=== PATIENT | female | born 2000 | race Caucasian/White ===

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

== ENCOUNTER 2018-12-08 19:43 | Emergency (ER) | payer BC ==
[2018-12-08 19:49] VITALS: TEMP 98
[2018-12-08] MEDS ORDERED: SODIUM CHLORIDE 0.9% 500 ML 500 ML IV ONE (20:25)
[2018-12-08 20:47] LABS: Basophils % (A) 0 %; Eosinophils # (A) 0.1 k/uL (0-0.7); Eosinophils % (A) 1 %; HCT 33.1 % (34.0-46.0); HGB 12.1 gm/dL (11.4-16.0); Hyperchromasia Marked; Lymphocytes # (A) 0.9 k/uL (1.0-4.8); Lymphocytes % (A) 9 %; MCH 33.4 pg (25.0-35.0); MCHC 36.6 g/dL (31.0-37.0); MCV 91.4 fL (80.0-100.0); Mean Platelet Volume 6.6; Monocytes # (A) 0.4 k/uL (0-1.0); Monocytes % (A) 4 %; Neutrophils # (A) 8.8 k/uL (1.3-7.7); Neutrophils % (A) 85 %; Platelet Count 293 k/uL (150-450); RBC 3.62 m/uL (3.80-5.40); RDW 15.3 % (11.5-15.5); WBC 10.4 k/uL (4.0-11.0)
[2018-12-08 20:56] LABS: ALT 24 U/L (9-52); AST 26 U/L (14-36); African American GFR (CKD) >90 (>60 ml/min/1.73 sqM); Albumin 4.3 g/dL (3.5-5.0); Alkaline Phosphatase 47 U/L (38-126); Anion Gap 12 mmol/L; Blood Urea Nitrogen 11 mg/dL (7-17); Calcium 10.1 mg/dL (8.4-10.2); Carbon Dioxide 21 mmol/L (22-30); Chloride 103 mmol/L (98-107); Glucose 103 mg/dL (74-99); Potassium 4.1 mmol/L (3.5-5.1); Sodium 136 mmol/L (137-145); Total Bilirubin 2.9 mg/dL (0.2-1.3); Total Protein 7.2 g/dL (6.3-8.2)
[2018-12-08] MEDS ORDERED: ACETAMINOPHEN TAB 325 MG TAB PO STA (21:41)
--- NOTE | 2018-12-08 22:23 | ED ---
Abdominal Pain HPI - General Chief Complaint: Abdominal Pain Stated Complaint: Abd pain Time Seen by Provider: 12/08/18 20:25 Source: patient, family Mode of arrival: ambulatory Limitations: no limitations - History of Present Illness Initial Comments: 18-year-old female with no past medical history currently 16 weeks presents to emergency department accompanied by her mother. Patient states that for the past week and a half she has had increasing vomiting abdominal pain around her belly button. She states the pain increases in the right lower quadrant when she lets her leg. She was concerned of appendicitis. She did present earlier [facility] who diagnosed her with gastritis and discharge her from their facility. Patient states that she has had no vaginal bleeding. No lower pelvic pain. She states that she has had no blood in her stools or vomit. Denies fevers. Patient denies any dysuria urgency frequency or increase d vaginal discharge. Remaining review of system negative. Patient states she has not had an appetite. Patient states that she would like to r/o appendicitis and states she does not plan on keeping the and has a scheduled D&C outpatient. - Related Data Home Medications Medication Instructions Recorded Confirmed PARoxetine HCL [Paxil] 30 mg PO DAILY 09/04/17 12/08/18 Dextroamphetamine/Amphetamine 25 mg PO DIRECTED 12/08/18 12/08/18 [Adderall Xr] Omeprazole 40 mg PO DAILY 12/08/18 12/08/18 Ondansetron [Zofran ODT] 4 mg PO Q8HR 12/08/18 12/08/18 Allergies Allergy/AdvReac Type Severity Reaction Status Date / Time bupropion [From Wellbutrin] AdvReac CAUSES Verified 12/08/18 20:48 SEIZURES Review of Systems ROS Statement: Those systems with pertinent positive or pertinent negative responses have been documented in the HPI. ROS Other: All systems not noted in ROS Statement are negative. Past Medical History Past Medical History: GERD/Reflux Additional Past Medical History / Comment(s): pulmonary stenosis History of Any Multi-Drug Resistant Organisms: None Reported Past Surgical History: No Surgical Hx Reported Past Anesthesia/Blood Transfusion Reactions: No Reported Reaction Past Psychological History: ADD/ADHD, Anxiety, Depression Smoking Status: Current every day smoker Past Alcohol Use History: None Reported Past Drug Use History: None Reported - Past Family History Father Additional Family Medical History / Comment(s): add, smoker Mother Family Medical History: Hypertension, Thyroid Disorder Additional Family Medical History / Comment(s): cataracts, detatched retina, scleraderma, polymyocytis General Exam - General Exam Comments Initial Comments: General: The patient is awake and alert, in no distress Eye: +3 mm pupils are equal, round and reactive to light, extra-ocular movements are intact. No nystagmus. There is normal conjunctiva bilaterally. No signs of icterus. Ears, nose, mouth and throat: There are moist mucous membranes and no oral lesions. Neck: The neck is supple, there is no tenderness or JVD. Cardiovascular: There is a regular rate and rhythm. No murmur, rub or gallop is appreciated. Respiratory: Lungs are clear to auscultation, respirations are non-labored, breath sounds are equal. No wheezes, stridor, rales, or rhonchi. Gastrointestinal: Soft, non-distended, abdomen without masses or organomegaly noted. RLQ tenderness at McBurneys point. There is no rebound or guarding present. No CVA tenderness. Bowel sounds are unremarkable. Musculoskeletal: Normal ROM, no tenderness. Strength 5/5. Sensation intact. Radial and DP pulses equal bilaterally 2+. Neurological: A&O x 3. CN II-XII intact, There are no obvious motor or sensory deficits. Coordination appears grossly intact. Speech is normal. Skin: Skin is warm and dry and no rashes or lesions are noted. Psychiatric: Cooperative, appropriate mood & affect, normal judgment. Limitations: no limitations Course Vital Signs 12/08/18 12/09/18 19:45 00:37 Temperature 98.0 F Pulse Rate 95 69 Respiratory 20 18 Rate Blood Pressure 123/85 115/54 O2 Sat by Pulse 95 99 Oximetry - Reevaluation(s) Reevaluation #1: Refuses pelvic exam. Medical Decision Making - Medical Decision Making 18-year-old female presenting for right lower quadrant abdominal pain she admits to periumbilical pain. No appetite. Vomiting for the past week and half incr ease from her baseline during . Patient has a planned D&C. Patient has pain with raising of the right leg concern for appendicitis. Patient's patient will pain on examination. No leukocytosis or low-grade fever. However there is clinical concern for appendicitis. Patient is requesting CT. I discussed the risks of radiation to the fetus. She states she is aware and would like to continue as she is not keeping the and has scheduled D&C. Discussed case with attending and radiologist (stat rad). They are agreeable with study. Risks were discussed again at length prior to obtaining CT, patient would like to proceed. CT obtained revealing no acute process. US viable IUP no complicating process seen at this time. patient upon discharge was stating pain resolved. Refused pelvic on multiple occasions. Refused to give urine sample. Patient give IV hydration. Discharged appearing well, return parameters discussed. - Lab Data Result diagrams: 12/08/18 20:37 12/08/18 20:37 Lab Results 12/08/18 12/08/18 12/08/18 Range/Units 20:35 20:37 20:37 WBC 10.4 (4.0-11.0) k/uL RBC 3.62 L (3.80-5.40) m/uL Hgb 12.1 (11.4-16.0) gm/dL Hct 33.1 L (34.0-46.0) % MCV 91.4 (80.0-100.0) fL MCH 33.4 (25.0-35.0) pg MCHC 36.6 (31.0-37.0) g/dL RDW 15.3 (11.5-15.5) % Plt Count 293 (150-450) k/uL Neutrophils % 85 % Lymphocytes % 9 % Monocytes % 4 % Eosinophils % 1 % Basophils % 0 % Neutrophils # 8.8 H (1.3-7.7) k/uL Lymphocytes # 0.9 L (1.0-4.8) k/uL Monocytes # 0.4 (0-1.0) k/uL Eosinophils # 0.1 (0-0.7) k/uL Basophils # 0.0 (0-0.2) k/uL Hyperchromasia Marked Sodium 136 L (137-145) mmol/L Potassium 4.1 (3.5-5.1) mmol/L Chloride 103 (98-107) mmol/L Carbon Dioxide 21 L (22-30) mmol/L Anion Gap 12 mmol/L BUN 11 (7-17) mg/dL Creatinine 0.44 L (0.52-1.04) mg/dL Est GFR (CKD-EPI)AfAm >90 (>60 ml/min/1.73 sqM) Est GFR (CKD-EPI)NonAf >90 (>60 ml/min/1.73 sqM) Glucose 103 H (74-99) mg/dL Calcium 10.1 (8.4-10.2) mg/dL Total Bilirubin 2.9 H (0.2-1.3) mg/dL AST 26 (14-36) U/L ALT 24 (9-52) U/L Alkaline Phosphatase 47 (38-126) U/L Total Protein 7.2 (6.3-8.2) g/dL Albumin 4.3 (3.5-5.0) g/dL HCG, Quant mIU/mL Blood Type O Positive Blood Type Recheck No Antibody Screen NEGATIVE Spec Expiration Date 12/11/2018 - 233612/08/18 Range/Units 20:38 WBC (4.0-11.0) k/uL RBC (3.80-5.40) m/uL Hgb (11.4-16.0) gm/dL Hct (34.0-46.0) % MCV (80.0-100.0) fL MCH (25.0-35.0) pg MCHC (31.0-37.0) g/dL RDW (11.5-15.5) % Plt Count (150-450) k/uL Neutrophils % % Lymphocytes % % Monocytes % % Eosinophils % % Basophils % % Neutrophils # (1.3-7.7) k/uL Lymphocytes # (1.0-4.8) k/uL Monocytes # (0-1.0) k/uL Eosinophils # (0-0.7) k/uL Basophils # (0-0.2) k/uL Hyperchromasia Sodium (137-145) mmol/L Potassium (3.5-5.1) mmol/L Chloride (98-107) mmol/L Carbon Dioxide (22-30) mmol/L Anion Gap mmol/L BUN (7-17) mg/dL Creatinine (0.52-1.04) mg/dL Est GFR (CKD-EPI)AfAm (>60 ml/min/1.73 sqM) Est GFR (CKD-EPI)NonAf (>60 ml/min/1.73 sqM) Glucose (74-99) mg/dL Calcium (8.4-10.2) mg/dL Total Bilirubin (0.2-1.3) mg/dL AST (14-36) U/L ALT (9-52) U/L Alkaline Phosphatase (38-126) U/L Total Protein (6.3-8.2) g/dL Albumin (3.5-5.0) g/dL HCG, Quant 26587.3 mIU/mL Blood Type Blood Type Recheck Antibody Screen Spec Expiration Date Disposition Clinical Impression: Abdominal pain, Right lower quadrant pain, Elevated alkaline phosphatase level Disposition: HOME SELF-CARE Condition: Good Instructions (If sedation given, give patient instructions): Abdominal Pain (ED) Additional Instructions: Please use medication as discussed. Please follow-up with family doctor in the next 2 days, and OBGYN as scheduled. Please return to emergency room if the symptoms increase or worsen or for any other concerns. Is patient prescribed a controlled substance at d/c from ED?: No Referrals: Alan Jacobs MD [Primary Care Provider] - 1-2 days Time of Disposition: 00:57
[2018-12-08] MEDS ORDERED: IBUPROFEN 600 MG TAB PO STA (23:00)
--- NOTE | 2018-12-08 23:26 | US ---
EXAM: US After First Trimester, Transabdominal CLINICAL HISTORY: Pain TECHNIQUE: Real-time transabdominal obstetrical ultrasound of the maternal pelvis and a second or third trimester with image documentation. COMPARISON: No relevant prior studies available. FINDINGS: Fetus: Single live IUP with an estimated gestational age of 14 weeks and 4 days. Heart rate: Normal heart tones measured 152 bpm. Presentation: Cephalic presentation. Placenta: Anterior placenta without evidence of previa. Amniotic fluid: Unremarkable. Anatomy: Intracranial/face anatomy not seen. Spinal anatomy not seen. Abdominal anatomy not seen. Extremities not seen. Four-chamber heart not seen. Umbilical cord not seen. BIOMETRICS Gestational age: 14 weeks and 4 days MARITA: 06/04/2021 EFW: 90.5 g BPD: 2.47 cm suggesting 14 week and 2 day gestation HC: 9.85 cm suggesting 14 week and 4 day gestation AC: 7.85 cm suggesting 14 week and 2 day gestation FL: 1.32 cm suggesting 13 week and 6 day gestation MATERNAL: Uterus: Unremarkable. No myometrial mass. Cervix: Long and closed measured 3.0 cm. Free fluid: No free fluid. IMPRESSION: Single live IUP with an estimated gestational age of 14 weeks and 4 days.
[2018-12-09 00:38] VITALS: BP 115/54; PULSE 69; RESP 18
--- NOTE | 2018-12-09 00:54 | CT ---
EXAM: CT Abdomen and Pelvis With Intravenous Contrast CLINICAL HISTORY: Pain TECHNIQUE: Axial computed tomography images of the abdomen and pelvis with intravenous contrast. CTDI is 0.085, 0.085, 6.3, 5.8 mGy and DLP is 540. 7 mGy-cm. This CT exam was performed using one or more of the following dose reduction techniques: automated exposure control, adjustment of the mA and/or kV according to patient size, and/or use of iterative reconstruction technique. COMPARISON: No relevant prior studies available. FINDINGS: Lung bases: Unremarkable. No mass. No consolidation. ABDOMEN: Liver: Unremarkable. Gallbladder and bile ducts: Unremarkable. Pancreas: Unremarkable. Spleen: Unremarkable. Adrenals: Unremarkable. Kidneys and ureters: Unremarkable. Stomach and bowel: Unremarkable. PELVIS: Appendix: Appendix is unremarkable. Bladder: Unremarkable. Reproductive: Unremarkable as visualized. ABDOMEN and PELVIS: Intraperitoneal space: Trace free fluid the pelvis. Bones/joints: No acute fracture. No dislocation. Soft tissues: Unremarkable. Vasculature: Unremarkable. No abdominal aortic aneurysm. Lymph nodes: Unremarkable. Other findings: Single IUP is noted. IMPRESSION: 1. Appendix is unremarkable. 2. Single IUP is noted.
== END 2018-12-09 01:07 | disposition home or self-care (01) ==
LOC: EC 19:43
DX: O99.89 Other specified diseases and conditions complicating pregnancy, childbirth and the puerperium (principal); R74.8 Abnormal levels of other serum enzymes; R10.31 Right lower quadrant pain; R10.33 Periumbilical pain; O21.9 Vomiting of pregnancy, unspecified; O99.612 Diseases of the digestive system complicating pregnancy, second trimester; K21.9 Gastro-esophageal reflux disease without esophagitis; O99.342 Other mental disorders complicating pregnancy, second trimester; F32.9 Major depressive disorder, single episode, unspecified; F41.9 Anxiety disorder, unspecified; F90.9 Attention-deficit hyperactivity disorder, unspecified type; O99.332 Smoking (tobacco) complicating pregnancy, second trimester; F17.200 Nicotine dependence, unspecified, uncomplicated; Z88.8 Allergy status to other drugs, medicaments and biological substances; Z79.899 Other long term (current) drug therapy; Z3A.14 14 weeks gestation of pregnancy; Z53.20 Procedure and treatment not carried out because of patient's decision for unspecified reasons
CPT/HCPCS: 36415; 86900; 86901; 80053; 85025; 86850; 84702; 93975; 76805; 74177; 99284; 96360; Q9967

== ENCOUNTER 2021-02-16 11:55 | Observation (INO) | payer BC ==
[2021-02-16] MEDS ORDERED: ONDANSETRON 4 MG/2 ML VIAL IVP STA ×2 (13:14→15:18)
[2021-02-16] MEDS ORDERED: MORPHINE SULFATE 4 MG/ML SYRINGE IV STA ×2 (13:14→15:18)
--- NOTE | 2021-02-16 13:17 | ED ---
General Adult HPI - General Chief complaint: Abdominal Pain Stated complaint: abd pain Time Seen by Provider: 02/16/21 12:48 Source: patient, family Mode of arrival: wheelchair Limitations: no limitations - History of Present Illness Initial comments: Dictation was produced using [employer] dictation software. please excuse any grammatical, word or spelling errors. Chief Complaint: 20-year-old female presents emergency department for abdominal pain History of Present Illness: 20-year-old female she states she was diagnosed with a history of GERD as a pediatric patient. Over the last several weeks she's been having worsening abdominal pain. She presents today with cousin and other family friend. Over the last month patient has been having worsening GI symptoms including poor appetite, nausea vomiting and bloody diarrhea. Patient is told that she was anemic. She was seen at [facility] recently and told that she may have a stomach ulcer. Patient states that she has pain all over but worse in the left lower quadrant. She denies . Denies ever having had a colonoscopy but has had a upper endoscopy performed at the age of 13 showing reflux disease. Denies any fever. No chills. No constitutional symptoms. Denies any vaginal discharge or vaginal bleeding. The ROS documented in this emergency department record has been reviewed and confirmed by me. Those systems with pertinent positive or negative responses have been documented in the HPI. All other systems are other negative and/or noncontributory. PHYSICAL EXAM: General Impression: Alert and oriented x3, lethargic HEENT: Normocephalic atraumatic, extra-ocular movements intact, pupils equal and reactive to light bilaterally, dry mucous membranes Cardiovascular: Heart regular rate and rhythm Chest: Able to complete full sentences, no retractions, no tachypnea Abdomen: abdomen soft, diffuse tenderness worse in the left lower quadrant, non- distended, no organomegaly Musculoskeletal: Pulses present and equal in all extremities, no peripheral edema Motor: no focal deficits noted Neurological: CN II-XII grossly intact, no focal motor or sensory deficits noted Skin: Intact with no visualized rashes Psych: Normal affect and mood ED course: 20-year-old ill-appearing female presents to the emergency department for abdominal pain. Vital signs upon arrival are within acceptable limits. Laboratory evaluation obtained mild leukocytosis secondary secondary to stress. Hemoglobin stable. Metabolic panel is within acceptable limits. Slight elevation of lipase 06/09/2004. Beta Quant is negative. Urinalysis is negative. Patient given analgesia, fluids and antiemetics. She was reevaluated at bedside continues to be symptomatic. There is some degree of dehydration. Patient is a regular marijuana user. Clinical presentation is likely secondary to hyperemesis cannabinoid syndrome. Patient does not feel well enough to go home and has been having increase in severity of symptoms over the last 72 hours. Patient be admitted to observation. Patient be admitted to [facility]. - Related Data Home Medications Medication Instructions Recorded Confirmed PARoxetine HCL [Paxil] 30 mg PO DAILY 09/04/17 02/16/21 Ondansetron [Zofran ODT] 4 mg PO Q8HR 12/08/18 02/16/21 Cholecalciferol (Vitamin D3) 125 mcg PO DAILY 02/16/21 02/16/21 [Vitamin D3 (125 MCG = 5,000 IU)] Dicyclomine [Bentyl] 10 mg PO QID 02/16/21 02/16/21 Famotidine [Pepcid] 20 mg PO BID 02/16/21 02/16/21 Methylphenidate HCl [Concerta] 27 mg PO DAILY 02/16/21 02/16/21 OLANZapine [ZyPREXA] 2.5 mg PO HS 02/16/21 02/16/21 Omeprazole 20 mg PO BID 02/16/21 02/16/21 clonazePAM [KlonoPIN] 0.5 mg PO Q8H 02/16/21 02/16/21 Allergies Allergy/AdvReac Type Severity Reaction Status Date / Time bupropion [From Wellbutrin] AdvReac CAUSES Verified 02/16/21 13:58 SEIZURES Review of Systems ROS Statement: Those systems with pertinent positive or pertinent negative responses have been documented in the HPI. ROS Other: All systems not noted in ROS Statement are negative. Past Medical History Past Medical History: GERD/Reflux Additional Past Medical History / Comment(s): pulmonary stenosis History of Any Multi-Drug Resistant Organisms: None Reported Past Surgical History: No Surgical Hx Reported Past Anesthesia/Blood Transfusion Reactions: No Reported Reaction Past Psychological History: ADD/ADHD, Anxiety, Depression Past Alcohol Use History: None Reported Past Drug Use History: None Reported - Past Family History Father Additional Family Medical History / Comment(s): add, smoker Mother Family Medical History: Hypertension, Thyroid Disorder Additional Family Medical History / Comment(s): cataracts, detatched retina, scleraderma, polymyocytis General Exam Limitations: no limitations Course Vital Signs 02/16/21 12:37 Temperature 97.7 F Pulse Rate 80 Respiratory 18 Rate Blood Pressure 118/79 O2 Sat by Pulse 99 Oximetry Medical Decision Making - Lab Data Result diagrams: 02/16/21 13:20 02/16/21 13:20 Lab Results 02/16/21 02/16/21 02/16/21 Range/Units 13:20 13:20 13:20 WBC 12.0 H (3.8-10.6) k/uL RBC 3.64 L (3.80-5.40) m/uL Hgb 12.6 (11.4-16.0) gm/dL Hct 33.0 L (34.0-46.0) % MCV 90.6 (80.0-100.0) fL MCH 34.6 (25.0-35.0) pg MCHC 38.2 H (31.0-37.0) g/dL RDW 13.5 (11.5-15.5) % Plt Count 272 (150-450) k/uL MPV 7.6 Neutrophils % 89 % Lymphocytes % 7 % Monocytes % 3 % Eosinophils % 0 % Basophils % 0 % Neutrophils # 10.6 H (1.3-7.7) k/uL Lymphocytes # 0.9 L (1.0-4.8) k/uL Monocytes # 0.4 (0-1.0) k/uL Eosinophils # 0.0 (0-0.7) k/uL Basophils # 0.0 (0-0.2) k/uL Differential Comment Manual Slide Review Performed Hyperchromasia Marked Poikilocytosis Slight Sodium 137 (137-145) mmol/L Potassium 3.6 (3.5-5.1) mmol/L Chloride 103 (98-107) mmol/L Carbon Dioxide 22 (22-30) mmol/L Anion Gap 12 mmol/L BUN 10 (7-17) mg/dL Creatinine 0.62 (0.52-1.04) mg/dL Est GFR (CKD-EPI)AfAm >90 (>60 ml/min/1.73 sqM) Est GFR (CKD-EPI)NonAf >90 (>60 ml/min/1.73 sqM) Glucose 130 H (74-99) mg/dL Calcium 10.5 H (8.4-10.2) mg/dL Total Bilirubin 2.1 H (0.2-1.3) mg/dL AST 23 (14-36) U/L ALT 13 (4-34) U/L Alkaline Phosphatase 64 (38-126) U/L Total Protein 7.3 (6.3-8.2) g/dL Albumin 4.6 (3.5-5.0) g/dL Lipase 405 H (23-300) U/L HCG, Quant <2.4 mIU/mL Urine Color Urine Appearance (Clear) Urine pH (5.0-8.0) Ur Specific [place] (1.001-1.035) Urine Protein (Negative) Urine Glucose (UA) (Negative) Urine Ketones (Negative) Urine Blood (Negative) Urine Nitrite (Negative) Urine Bilirubin (Negative) Urine Urobilinogen (<2.0) mg/dL Ur Leukocyte Esterase (Negative) Blood Type O Positive Blood Type Recheck O Pos Bld Type Recheck Status No Antibody Screen NEGATIVE Spec Expiration Date 02/19/2021 - 231902/16/21 Range/Units 14:49 WBC (3.8-10.6) k/uL RBC (3.80-5.40) m/uL Hgb (11.4-16.0) gm/dL Hct (34.0-46.0) % MCV (80.0-100.0) fL MCH (25.0-35.0) pg MCHC (31.0-37.0) g/dL RDW (11.5-15.5) % Plt Count (150-450) k/uL MPV Neutrophils % % Lymphocytes % % Monocytes % % Eosinophils % % Basophils % % Neutrophils # (1.3-7.7) k/uL Lymphocytes # (1.0-4.8) k/uL Monocytes # (0-1.0) k/uL Eosinophils # (0-0.7) k/uL Basophils # (0-0.2) k/uL Differential Comment Manual Slide Review Hyperchromasia Poikilocytosis Sodium (137-145) mmol/L Potassium (3.5-5.1) mmol/L Chloride (98-107) mmol/L Carbon Dioxide (22-30) mmol/L Anion Gap mmol/L BUN (7-17) mg/dL Creatinine (0.52-1.04) mg/dL Est GFR (CKD-EPI)AfAm (>60 ml/min/1.73 sqM) Est GFR (CKD-EPI)NonAf (>60 ml/min/1.73 sqM) Glucose (74-99) mg/dL Calcium (8.4-10.2) mg/dL Total Bilirubin (0.2-1.3) mg/dL AST (14-36) U/L ALT (4-34) U/L Alkaline Phosphatase (38-126) U/L Total Protein (6.3-8.2) g/dL Albumin (3.5-5.0) g/dL Lipase (23-300) U/L HCG, Quant mIU/mL Urine Color Light Yellow Urine Appearance Clear (Clear) Urine pH 8.0 (5.0-8.0) Ur Specific [place] 1.016 (1.001-1.035) Urine Protein Negative (Negative) Urine Glucose (UA) Negative (Negative) Urine Ketones 2+ H (Negative) Urine Blood Negative (Negative) Urine Nitrite Negative (Negative) Urine Bilirubin Negative (Negative) Urine Urobilinogen <2.0 (<2.0) mg/dL Ur Leukocyte Esterase Negative (Negative) Blood Type Blood Type Recheck Bld Type Recheck Status Antibody Screen Spec Expiration Date Disposition Clinical Impression: Intractable nausea and vomiting Disposition: ADMITTED IP TO THIS [facility] Condition: Fair Referrals: Alan Jacobs MD [Primary Care Provider] - 1-2 days
[2021-02-16] MEDS ORDERED: SODIUM CHLORIDE 0.9% 1,000 ML IV ONE (13:24)
[2021-02-16 13:33] LABS: Basophils % (A) 0 %; Eosinophils % (A) 0 %; HGB 12.6 gm/dL (11.4-16.0); Hyperchromasia Marked; Lymphocytes # (A) 0.9 k/uL (1.0-4.8); Lymphocytes % (A) 7 %; MCH 34.6 pg (25.0-35.0); MCV 90.6 fL (80.0-100.0); Mean Platelet Volume 7.6; Monocytes # (A) 0.4 k/uL (0-1.0); Monocytes % (A) 3 %; Neutrophils # (A) 10.6 k/uL (1.3-7.7); Neutrophils % (A) 89 %; Platelet Count 272 k/uL (150-450); Poikilocytosis Slight; RBC 3.64 m/uL (3.80-5.40); RDW 13.5 % (11.5-15.5)
[2021-02-16 13:50] LABS: ALT 13 U/L (4-34); AST 23 U/L (14-36); African American GFR (CKD) >90 (>60 ml/min/1.73 sqM); Albumin 4.6 g/dL (3.5-5.0); Alkaline Phosphatase 64 U/L (38-126); Anion Gap 12 mmol/L; Blood Urea Nitrogen 10 mg/dL (7-17); Calcium 10.5 mg/dL (8.4-10.2); Carbon Dioxide 22 mmol/L (22-30); Chloride 103 mmol/L (98-107); Glucose 130 mg/dL (74-99); Lipase 405 U/L (23-300); Non-African American GFR(CKD) >90 (>60 ml/min/1.73 sqM); Potassium 3.6 mmol/L (3.5-5.1); Sodium 137 mmol/L (137-145); Total Bilirubin 2.1 mg/dL (0.2-1.3); Total Protein 7.3 g/dL (6.3-8.2)
[2021-02-16 13:51] LABS: MCHC 38.2 g/dL (31.0-37.0)
[2021-02-16 14:05] LABS: HCG,Quantitative Serum <2.4 mIU/mL
[2021-02-16 14:56] LABS: Appearance,Urine Clear (Clear); Bilirubin,Urine Negative (Negative); Blood,Urine Negative (Negative); Color,Urine Light Yellow; Glucose,Urine (UA) Negative (Negative); Ketones,Urine 2+ (Negative); Leukocyte Esterase,Urine Negative (Negative); Nitrite,Urine Negative (Negative); Protein,Urine Negative (Negative); Specific Gravity,Urine 1.016 (1.001-1.035); Urobilinogen,Urine <2.0 mg/dL (<2.0)
--- NOTE | 2021-02-16 15:05 | CT ---
EXAMINATION TYPE: CT abdomen pelvis w con DATE OF EXAM: 02/16/2021 COMPARISON: 12/09/2018 INDICATION: Generalized pain for 2 months DLP: 899.3 mGycm, Automated exposure control for dose reduction was used. CONTRAST: 100 mL of Isovue 300. Study performed without Oral Contrast TECHNIQUE: Axial images were obtained from above the diaphragm to the pubic rami in the axial plane a t 5 mm thick sections. Reconstructed images are reviewed on the computer in the coronal plane. FINDINGS: Limited CT sections are obtained the lung bases. The lung bases are clear. CT ABDOMEN: Liver: Normal Spleen: Normal Pancreas: Normal Adrenal glands: The adrenal glands are normal. Gallbladder: Normal Kidneys: No masses are evident. No hydronephrosis is present. No cysts are present. Delayed images were obtained through the kidneys, which remain unremarkable. Aorta: Vascular calcification is within the aorta. Inferior vena cava: Normal. CT PELVIS: Loops of bowel within the abdomen and pelvis are normal. There are loops of bowel which are incom pletely distended or lack oral contrast limiting their evaluation. Appendix: Normal as visualized. Urinary bladder: Normal. Genitourinary structures: There is a 2 cm cyst on the right ovary. The uterus appears unremarkable. L eft adnexal region is unremarkable. A 0.7 cm follicle may be present on the left ovary. No free fluid is within the pelvis. Osseous structures: No suspicious lytic or sclerotic lesions. IMPRESSIONS: 1. 2 cm cyst right ovary. 2. CT abdomen and pelvis otherwise essentially unremarkable
[2021-02-16] MEDS ORDERED: CAPSAICIN 0.025% CREAM 60 GM TUBE TOPICAL STA (15:20)
[2021-02-16] MEDS ORDERED: NALOXONE 0.4 MG/ML 1 ML VIAL IV PRN (15:21)
[2021-02-16] MEDS ORDERED: ACETAMINOPHEN TAB 325 MG TAB PO PRN (15:21)
[2021-02-16] MEDS ORDERED: ONDANSETRON 4 MG/2 ML VIAL IVP PRN (15:21)
[2021-02-16] MEDS ORDERED: MORPHINE SULFATE 4 MG/ML SYRINGE IV PRN (15:21)
[2021-02-16] MEDS: SODIUM CHLORIDE 0.9% 1,000 ML IV SCH ×2 (15:50→23:37)
--- NOTE | 2021-02-16 18:16 | P.HPIM ---
History of Present Illness H&P Date: 02/16/21 Chief Complaint: Abdominal pain, vomiting, hematochezia 20-year-old woman with medical history of ADHD, mood disturbance, GERD, marijuana abuse presented with abdominal pain, nausea, vomiting. Patient says that she's had this issue for approximately one month, but has been particularly worse in the past week. She has been to 2 emergency rooms and was sent home from the emergency room twice. She comes in today complaining of ongoing abdominal pain, nausea, vomiting. She also reports that she has having some hematochezia in her stools. She denies fevers, chills, chest pain, palpitations, dysuria, numbness/weakness. She does report a history of marijuana use. Of note, patient herself provided limited history and only minimally participated in review of systems due to sedation from pain medication. Patient is afebrile, hemodynamically stable, 98% on room air. Review of Systems All Systems reviewed and pertinent positives and negatives noted in HPI, all other symptoms are negative Past Medical History Past Medical History: GERD/Reflux Additional Past Medical History / Comment(s): pulmonary stenosis History of Any Multi-Drug Resistant Organisms: None Reported Past Surgical History: No Surgical Hx Reported Past Anesthesia/Blood Transfusion Reactions: No Reported Reaction Past Psychological History: ADD/ADHD, Anxiety, Depression Past Alcohol Use History: None Reported Past Drug Use History: None Reported - Past Family History Father Additional Family Medical History / Comment(s): add, smoker Mother Family Medical History: Hypertension, Thyroid Disorder Additional Family Medical History / Comment(s): cataracts, detatched retina, scleraderma, polymyocytis Medications and Allergies Home Medications Medication Instructions Recorded Confirmed Type PARoxetine HCL [Paxil] 30 mg PO DAILY 09/04/17 02/16/21 History Ondansetron [Zofran ODT] 4 mg PO Q8HR 12/08/18 02/16/21 History Cholecalciferol (Vitamin D3) 125 mcg PO DAILY 02/16/21 02/16/21 History [Vitamin D3 (125 MCG = 5,000 IU)] Dicyclomine [Bentyl] 10 mg PO QID 02/16/21 02/16/21 History Famotidine [Pepcid] 20 mg PO BID 02/16/21 02/16/21 History Methylphenidate HCl [Concerta] 27 mg PO DAILY 02/16/21 02/16/21 History OLANZapine [ZyPREXA] 2.5 mg PO HS 02/16/21 02/16/21 History Omeprazole 20 mg PO BID 02/16/21 02/16/21 History clonazePAM [KlonoPIN] 0.5 mg PO Q8H 02/16/21 02/16/21 History Allergies Allergy/AdvReac Type Severity Reaction Status Date / Time bupropion [From Wellbutrin] AdvReac CAUSES Verified 02/16/21 13:58 SEIZURES Physical Exam Osteopathic Statement: *. No significant issues noted on an osteopathic structural exam other than those noted in the History and Physical/Consult. Vitals: Vital Signs Temp Pulse Resp BP Pulse Ox 02/16/21 17:30 77 16 126/78 98 02/16/21 15:53 67 16 132/93 98 02/16/21 12:37 97.7 F 80 18 118/79 99 Intake and Output 02/16/21 02/16/21 02/16/21 06:59 14:59 22:59 Other: Weight 78.018 kg Gen: Groggy, arousable to voice HEENT: normocephalic, atraumatic, good hearing acuity, moist mucous membranes Resp: good air exchange, breathing comfortably with no accessory muscle use, clear to auscultation bilaterally CVS: good distal perfusion x 4, regular rate and rhythm without murmurs GI: soft, NTTP, ND, hyperactive bowel sounds : no SPT, no CVAT, bonner catheter not present MSK: no pitting edema, no clubbing Neuro: non-focal, moving all extremities Results CBC & Chem 7: 02/16/21 13:20 02/16/21 13:20 Labs: Abnormal Lab Results - Last 24 Hours (Table) 02/16/21 02/16/21 02/16/21 Range/Units 13:20 13:20 14:49 WBC 12.0 H (3.8-10.6) k/uL RBC 3.64 L (3.80-5.40) m/uL Hct 33.0 L (34.0-46.0) % MCHC 38.2 H (31.0-37.0) g/dL Neutrophils # 10.6 H (1.3-7.7) k/uL Lymphocytes # 0.9 L (1.0-4.8) k/uL Glucose 130 H (74-99) mg/dL Calcium 10.5 H (8.4-10.2) mg/dL Total Bilirubin 2.1 H (0.2-1.3) mg/dL Lipase 405 H (23-300) U/L Urine Ketones 2+ H (Negative) Assessment and Plan Assessment: Abdominal pain Nausea and vomiting Hematochezia -Admit to observation -GI consult -Stool occult blood -IV fluids -Nausea control -Pain control Tylenol -ESR, CRP -Marijuana cessation counseling Mood disorder Anxiety GERD -Resume home meds Patient is a full code
[2021-02-16] MEDS: clonazePAM 0.5 MG TAB PO SCH ×2 (18:54→23:36)
[2021-02-16] MEDS: DICYCLOMINE 10 MG CAP PO SCH ×2 (18:54→22:19)
[2021-02-16] MEDS: PANTOPRAZOLE 40 MG TABLET PO SCH (18:55)
[2021-02-16] MEDS: MORPHINE SULFATE 4 MG/ML SYRINGE IVP PRN ×2 (20:28→23:36)
[2021-02-16] MEDS ORDERED: FAMOTIDINE 20 MG TAB PO SCH (21:00)
[2021-02-16] MEDS ORDERED: OLANZapine 2.5 MG TAB PO SCH (21:00)
[2021-02-16] MEDS: ONDANSETRON ODT 4 MG TAB PO SCH (22:19)
[2021-02-17 06:03] LABS: Basophils # (A) 0.1 k/uL (0-0.2); Basophils % (A) 1 %; Eosinophils % (A) 0 %; HCT 29.3 % (34.0-46.0); HGB 10.7 gm/dL (11.4-16.0); Hyperchromasia Marked; Lymphocytes % (A) 22 %; MCH 34.2 pg (25.0-35.0); MCHC 36.5 g/dL (31.0-37.0); MCV 93.7 fL (80.0-100.0); Mean Platelet Volume 7.7; Monocytes # (A) 0.5 k/uL (0-1.0); Monocytes % (A) 5 %; Neutrophils # (A) 6.4 k/uL (1.3-7.7); Neutrophils % (A) 70 %; Platelet Count 242 k/uL (150-450); Poikilocytosis Slight; RBC 3.13 m/uL (3.80-5.40); WBC 9.2 k/uL (3.8-10.6)
[2021-02-17] MEDS: PANTOPRAZOLE 40 MG TABLET PO SCH (06:05)
[2021-02-17] MEDS: ONDANSETRON ODT 4 MG TAB PO SCH ×2 (06:05→13:07)
[2021-02-17 08:21] LABS: African American GFR (CKD) >90 (>60 ml/min/1.73 sqM); Anion Gap 6 mmol/L; Blood Urea Nitrogen 7 mg/dL (7-17); Calcium 8.8 mg/dL (8.4-10.2); Carbon Dioxide 25 mmol/L (22-30); Chloride 108 mmol/L (98-107); Glucose 87 mg/dL (74-99); Magnesium 1.9 mg/dL (1.6-2.3); Non-African American GFR(CKD) >90 (>60 ml/min/1.73 sqM); Potassium 3.7 mmol/L (3.5-5.1); Sodium 139 mmol/L (137-145)
[2021-02-17 08:47] LABS: C Reactive Protein 1.2 mg/dL (<1.0)
[2021-02-17] MEDS: clonazePAM 0.5 MG TAB PO SCH (08:52)
[2021-02-17] MEDS: DICYCLOMINE 10 MG CAP PO SCH ×2 (08:53→13:11)
[2021-02-17 08:54] VITALS: TEMP 98.2
[2021-02-17] MEDS ORDERED: PARoxetine 10 MG TAB PO SCH (09:00)
[2021-02-17] MEDS ORDERED: CHOLECALCIFEROL 25 MCG (1000 IU) TABLET PO SCH (09:00)
[2021-02-17] MEDS ORDERED: PROCHLORPERAZINE INJ 10 MG/2 ML VIAL IVP PRN (10:13)
[2021-02-17 10:14] LABS: Albumin 3.5 g/dL (3.5-5.0); Bilirubin, Delta 0.3 mg/dL (0.0-0.2); Bilirubin,Unconjugated 0.9 mg/dL (0.0-1.1); Total Bilirubin 1.2 mg/dL (0.2-1.3)
[2021-02-17] MEDS: SODIUM CHLORIDE 0.9% 1,000 ML IV SCH (10:38)
[2021-02-17] MEDS ORDERED: METOCLOPRAMIDE 5 MG/ML 2 ML VIAL IVP SCH (12:00)
[2021-02-17 12:34] VITALS: BP 125/77; PULSE 72; RESP 16
--- NOTE | 2021-02-17 14:34 | P.CONS ---
History of Present Illness - Reason for Consult Consult date: 02/17/21 intractable nausea and vomiting Requesting physician: Radha Kelley - Chief Complaint abdominal pain - History of Present Illness This a 20-year-old female who presented to the emergency department yesterday with complaints of abdominal pain increasing in severity. Patient states she's had abdominal pain for the last 2 months duration with nausea and vomiting. Patient states pain does get worse after eating. States she may vomit up to 10 times a day, no evidence of coffee-ground emesis or hematemesis. She does state she has a history of GERD and was diagnosed with gastritis. She states she had an EGD approximately 10 years ago for recurrent abdominal pain and acid reflux. She does take omeprazole twice a day as well as Pepcid daily. Patient states she usually has a bowel movement daily. She does smoke marijuana daily and also tapes. Patient states she was told prior that, likely cyclic vomiting related to smoking marijuana. However she still continues to smoke daily. On admission WBC was 12, total bilirubin 2.1 AST 23 ALT 13 alkaline phosphatase 64 lipase 405. Repeat today 9.2 hemoglobin 10.7 hematocrit 29 platelet count 242 total bilirubin 1.2 conjugated bilirubin 0 unconjugated bilirubin 0.9 AST 19 ALT 10 alkaline phosphatase 44. The patient underwent a CT of the abdomen and pelvis that showed a 2 cm right ovarian cyst otherwise CT abdomen and pelvis essentially unremarkable. Review of Systems REVIEW OF SYSTEMS: CARDIOPULMONARY: No chest pain or shortness of breath. Gastrointestinal: Diffuse abdominal pain mostly periumbilical Nausea and vomiting. No hematemesis, coffee-ground emesis. No rectal bleeding, or melena. GENITOURINARY: No dysuria or hematuria. MUSCULOSKELETAL: Reports normal range of motion., Joint pain. SKIN: No rashes. No jaundice. ENDOCRINE: No chills, fevers. No excessive weight gain or loss. No polydipsia or polyuria. PSYCHIATRIC: Unremarkable. NEUROLOGY: No change in mental status. Denies dizziness, headache. ENT: Vision unremarkable. CONSTITUTIONAL: No recent weight loss. No fever, chills, night sweats. Past Medical History Past Medical History: GERD/Reflux Additional Past Medical History / Comment(s): pulmonary stenosis History of Any Multi-Drug Resistant Organisms: None Reported Past Surgical History: No Surgical Hx Reported Past Anesthesia/Blood Transfusion Reactions: No Reported Reaction Past Psychological History: ADD/ADHD, Anxiety, Depression Past Alcohol Use History: None Reported Past Drug Use History: None Reported - Past Family History Father Additional Family Medical History / Comment(s): add, smoker Mother Family Medical History: Hypertension, Thyroid Disorder Additional Family Medical History / Comment(s): cataracts, detatched retina, scleraderma, polymyocytis Medications and Allergies Home Medications Medication Instructions Recorded Confirmed Type PARoxetine HCL [Paxil] 30 mg PO DAILY 09/04/17 02/16/21 History Ondansetron [Zofran ODT] 4 mg PO Q8HR 12/08/18 02/16/21 History Cholecalciferol (Vitamin D3) 125 mcg PO DAILY 02/16/21 02/16/21 History [Vitamin D3 (125 MCG = 5,000 IU)] Dicyclomine [Bentyl] 10 mg PO QID 02/16/21 02/16/21 History Famotidine [Pepcid] 20 mg PO BID 02/16/21 02/16/21 History OLANZapine [ZyPREXA] 2.5 mg PO HS 02/16/21 02/16/21 History Omeprazole 20 mg PO BID 02/16/21 02/16/21 History clonazePAM [KlonoPIN] 0.5 mg PO Q8H 02/16/21 02/16/21 History Acetaminophen Tab [Tylenol] 650 mg PO Q6HR PRN tab 02/17/21 Rx Metoclopramide HCl [Reglan] 5 mg PO Q6H PRN #30 tablet 02/17/21 Rx Prochlorperazine [Compazine] 10 mg PO Q6H PRN #30 tab 02/17/21 Rx Allergies Allergy/AdvReac Type Severity Reaction Status Date / Time bupropion [From Wellbutrin] AdvReac CAUSES Verified 02/16/21 18:09 SEIZURES Physical Exam Vitals: Vital Signs Temp Pulse Pulse Resp BP BP Pulse Ox 02/17/21 03:09 98 F 67 16 100/62 95 02/16/21 20:25 98 F 86 18 130/78 98 02/16/21 18:41 98.3 F 77 16 111/74 95 02/16/21 17:30 77 16 126/78 98 02/16/21 15:53 67 16 132/93 98 02/16/21 12:37 97.7 F 80 18 118/79 99 Intake and Output 02/16/21 02/17/21 02/17/21 22:59 06:59 14:59 Intake Total 780 Output Total 700 Balance -700 780 Intake: Intake, IV Titration 780 Amount Sodium Chloride 0.9% 1, 780 000 ml @ 130 mls/hr IV . Q7H42M [facility] Rx#:[id number] Output: Urine 700 Other: Voiding Method Toilet Weight 75.1 kg General appearance: The patient is alert, oriented, appears in no acute distress. HET: Head is normocephalic and atraumatic. Conjunctiva pink. Sclera anicteric. Neck: Supple without lymphadenopathy. Trachea midline. Heart: S1 S2. Regular rate and rhythm. Lungs: Clear to auscultation. Abdomen: Soft, diffuse tenderness, nondistended with bowel sounds. No gu arding or rigidity. Skin: No rashes. No jaundice. Extremities: Normal skin color and turgor. No pedal edema. Neurological: No focal deficits. Alert and oriented x3. Results CBC & Chem 7: 02/17/21 05:39 02/17/21 05:39 Labs: Abnormal Lab Results - Last 24 Hours (Table) 02/16/21 02/16/21 02/16/21 Range/Units 13:20 13:20 14:49 WBC 12.0 H (3.8-10.6) k/uL RBC 3.64 L (3.80-5.40) m/uL Hgb (11.4-16.0) gm/dL Hct 33.0 L (34.0-46.0) % MCHC 38.2 H (31.0-37.0) g/dL Neutrophils # 10.6 H (1.3-7.7) k/uL Lymphocytes # 0.9 L (1.0-4.8) k/uL Chloride (98-107) mmol/L Glucose 130 H (74-99) mg/dL Calcium 10.5 H (8.4-10.2) mg/dL Total Bilirubin 2.1 H (0.2-1.3) mg/dL Lipase 405 H (23-300) U/L Urine Ketones 2+ H (Negative) 02/17/21 02/17/21 Range/Units 05:39 05:39 WBC (3.8-10.6) k/uL RBC 3.13 L (3.80-5.40) m/uL Hgb 10.7 L (11.4-16.0) gm/dL Hct 29.3 L (34.0-46.0) % MCHC (31.0-37.0) g/dL Neutrophils # (1.3-7.7) k/uL Lymphocytes # (1.0-4.8) k/uL Chloride 108 H (98-107) mmol/L Glucose (74-99) mg/dL Calcium (8.4-10.2) mg/dL Total Bilirubin (0.2-1.3) mg/dL Lipase (23-300) U/L Urine Ketones (Negative) Comments: CT abdomen and pelvis with findings of a 2 cm cyst on the right ovary. Otherwise essentially unremarkable. Assessment and Plan (1) Intractable nausea and vomiting Narrative/Plan: The 1-year-old female who presented to the emergency department with abdominal pain with intractable nausea and vomiting. Patient states she's vomiting up to 10 times a day. States she's been having abdominal pain with nausea and vomiting for the last 2 months duration however has been getting worse. States pain tends to get worse after eating. She states it's primarily in the middle of her abdomen. Patient states she has a history of GERD and gastritis. States she did have an EGD about 10 years ago related to her acid reflux. She takes omeprazole daily as well as Pepcid. Patient does have a history of daily marijuana/cannabinoid use. States that she has been told in the past that likely her symptoms are related to cannabinoid hyperemesis disorder. However she continues to smoke marijuana daily. Abdominal pain improving some at this point. She is tolerating some small amounts of clear liquids. No reports of coffee-ground or hematemesis. Bowel movements have been normal. Current Visit: Yes Status: Acute Code(s): R11.2 - NAUSEA WITH VOMITING, UNSPECIFIED SNOMED Code(s): 948464131 (2) Cannabinoid hyperemesis syndrome Current Visit: Yes Status: Acute Code(s): R11.2 - NAUSEA WITH VOMITING, UNSPECIFIED; F12.90 - CANNABIS USE, UNSPECIFIED, UNCOMPLICATED SNOMED Code(s): 669317437 Plan: 1. Continue symptomatic supportive care 2. Marijuana/cannabinoid abstinence 3. Continue Protonix 40 mg twice a day 4. Change Pepcid to at bedtime 5. Antiemetics as needed 6. Discussed with patient recommendation for complete cannabinoid cessation as it is likely cause for her symptoms 7. No plans on endoscopic evaluation at this time. If symptoms continue patient may follow up outpatient with gastroenterology. Thank you for allowing us to participate in the care of the patient, the GI ser vice will sign off, gastroenterology will not be available at the hospital. If further evaluation by gastroenterology is required the patient will need transfer as per the primary team's discretion. Dr. Kaitlin Mosley I agree with the dictator's note, documented as a scribe by Amy Hdz.
--- NOTE | 2021-02-17 14:57 | P.DS ---
Providers Date of admission: 02/16/21 15:21 Expected date of discharge: 02/17/21 Attending physician: Radha Kelley MD Consults: 02/16/21 15:22 Consult Physician Routine Consulting Provider: Denice Mosley Consult Reason/Comments: intractable n/v Do you want consulting provider notified?: Yes Primary care physician: [facility] Course: Abdominal pain Cyclic Vomiting Syndrome Marijuana Abuse -Admitted to observation, given IVF. Evaluated by GI. Stool occult blood was ordered due to patient reports of bleeding in stools, but patient did not have BM, so low suspicion for significant bleed. Pt did appear anemic after receiving IVF to 10.7, and therefore outpatient GI consult recommended for colonoscopy. Iron studies drawn and pending at time of discharge. Pt started on oral iron. Pts symptoms improved after 24 hours with nausea medication and bowel rest. Pt was extensively counseled on the nature of Cyclic vomiting syndrome, and the necessity to cease marijuana use. Mood disorder Anxiety GERD -Resumed home meds, discontinued ritalin. Needs to be tapered off of clonazepam. Assessment: Gen: awake, alert HEENT: normocephalic, atraumatic, good hearing acuity, moist mucous membranes Resp: good air exchange, breathing comfortably with no accessory muscle use, clear to auscultation bilaterally CVS: good distal perfusion x 4, regular rate and rhythm without murmurs GI: soft, NTTP, ND, hyperactive bowel sounds : no SPT, no CVAT, bonner catheter not present MSK: no pitting edema, no clubbing Neuro: non-focal, moving all extremities Patient Condition at Discharge: Good Plan - Discharge Summary Discharge Rx Participant: Yes New Discharge Prescriptions: New Prochlorperazine [Compazine] 10 mg PO Q6H PRN #30 tab PRN Reason: Nausea Acetaminophen Tab [Tylenol] 650 mg PO Q6HR PRN tab PRN Reason: Mild Pain Or Fever > 100.5 Metoclopramide HCl [Reglan] 5 mg PO Q6H PRN #30 tablet PRN Reason: Nausea Continue PARoxetine HCL [Paxil] 30 mg PO DAILY Ondansetron [Zofran ODT] 4 mg PO Q8HR Famotidine [Pepcid] 20 mg PO BID clonazePAM [KlonoPIN] 0.5 mg PO Q8H Omeprazole 20 mg PO BID OLANZapine [ZyPREXA] 2.5 mg PO HS Dicyclomine [Bentyl] 10 mg PO QID Cholecalciferol (Vitamin D3) [Vitamin D3 (125 MCG = 5,000 IU)] 125 mcg PO DAILY Discontinued Methylphenidate HCl [Concerta] 27 mg PO DAILY Discharge Medication List PARoxetine HCL [Paxil] 30 mg PO DAILY 09/04/17 [History] Ondansetron [Zofran ODT] 4 mg PO Q8HR 12/08/18 [History] Cholecalciferol (Vitamin D3) [Vitamin D3 (125 MCG = 5,000 IU)] 125 mcg PO DAILY 02/16/21 [History] Dicyclomine [Bentyl] 10 mg PO QID 02/16/21 [History] Famotidine [Pepcid] 20 mg PO BID 02/16/21 [History] OLANZapine [ZyPREXA] 2.5 mg PO HS 02/16/21 [History] Omeprazole 20 mg PO BID 02/16/21 [History] clonazePAM [KlonoPIN] 0.5 mg PO Q8H 02/16/21 [History] Acetaminophen Tab [Tylenol] 650 mg PO Q6HR PRN tab 02/17/21 [Rx] Metoclopramide HCl [Reglan] 5 mg PO Q6H PRN #30 tablet 02/17/21 [Rx] Prochlorperazine [Compazine] 10 mg PO Q6H PRN #30 tab 02/17/21 [Rx] Follow up Appointment(s)/Referral(s): Alan Jacobs MD [Primary Care Provider] - 1-2 days Denice Mosley MD [STAFF PHYSICIAN] - 1 Week (Call the office on Saturday for an appointment. let them know that Iftikhar MANDEL told you to follow up with Dr Mosley as an outpatient. Office is closed on Saturday. ) Activity/Diet/Wound Care/Special Instructions: Last received reglan through your iv at 12:21 Discharge Disposition: HOME SELF-CARE
[2021-02-17] MEDS ORDERED: SCOPOLAMINE 1.5MG/72HR PATCH TRANSDERM SCH (15:30)
[2021-02-17 16:04] LABS: Erythrocyte Sedimentation Rate 7 mm/hr (0-20)
[2021-02-17] MEDS ORDERED: FAMOTIDINE 20 MG TAB PO SCH (21:00)
[2021-02-17 23:56] LABS: % Iron Saturation 32.68 (12.00-45.00)
== END 2021-02-17 16:33 | disposition home or self-care (01) ==
LOC: EC 11:55 → 6PED 15:21
PROVIDERS: ADMIT Internal Medicine; ATTEND Internal Medicine
DX: R11.15 Cyclical vomiting syndrome unrelated to migraine (principal); F12.10 Cannabis abuse, uncomplicated; K92.1 Melena; N83.201 Unspecified ovarian cyst, right side; Z20.822 Contact with and (suspected) exposure to COVID-19; R19.7 Diarrhea, unspecified; E86.0 Dehydration; R19.12 Hyperactive bowel sounds; K21.9 Gastro-esophageal reflux disease without esophagitis; D72.829 Elevated white blood cell count, unspecified; R63.0 Anorexia; Z79.899 Other long term (current) drug therapy; Z88.8 Allergy status to other drugs, medicaments and biological substances; F32.9 Major depressive disorder, single episode, unspecified; F41.9 Anxiety disorder, unspecified; F90.9 Attention-deficit hyperactivity disorder, unspecified type; Z71.51 Drug abuse counseling and surveillance of drug abuser; Z87.19 Personal history of other diseases of the digestive system; Z82.49 Family history of ischemic heart disease and other diseases of the circulatory system; Z83.49 Family history of other endocrine, nutritional and metabolic diseases; Z83.518 Family history of other specified eye disorder
CPT/HCPCS: 96361 ×2; 96376 ×2; 96375 ×2; 96374; 99285; 36415; 86900; 86901; 80053; 80048; 80076; 85652; 83540; 83550; 83690; 83735; 85025 ×2; 86850; 86140; 81003; 84702; 87635; 74177; G0378 ×2; J2270; J0780; J2765; J2405; Q9967

== ENCOUNTER 2022-07-20 08:37 | Inpatient (IN) | payer BC ==
--- NOTE | 2022-07-20 08:53 | ED ---
Psych HPI - General Chief Complaint: Psychiatric Symptoms Stated Complaint: mental health Time Seen by Provider: 07/20/22 08:51 Source: patient, family (father), RN notes reviewed Mode of arrival: ambulatory - History of Present Illness Initial Comments: Patient is a 22-year-old female presenting to the emergency room with her father with concerns regarding visual hallucinations. She reports that she is seeing things such as a cereal bowl which is not present. She denies any auditory hallucinations suicidal thoughts or homicidal thoughts. Her father endorses manic-like behavior including inability to complete a task, flight of ideas, and lack of sleep. He believes that she has not slept adequately for approximately 3 days. She is continuing to take her prescribed medication for bipolar disorder, anxiety and depression as prescribed and is following with her psychiatrist regularly with her last appointment approximately one week ago. She has a past medical history in addition to her mental health history for GERD and pulmonary stenosis. - Related Data Home Medications Medication Instructions Recorded Confirmed OLANZapine [ZyPREXA] 2.5 mg PO DAILY 02/16/21 07/20/22 Albuterol Inhaler [Ventolin Hfa 2 puff INHALATION RT-Q6H PRN 07/20/22 07/20/22 Inhaler] Cholecalciferol [Vitamin D3 (125 125 mcg PO DAILY 07/20/22 07/20/22 Mcg = 5000 Iu)] FLUoxetine HCL [PROzac] 40 mg PO DAILY 07/20/22 07/20/22 Methylphenidate HCl [Ritalin] 10 mg PO BID 07/20/22 07/20/22 OLANZapine [ZyPREXA] 5 mg PO HS 07/20/22 07/20/22 Omeprazole 20 mg PO BID 07/20/22 07/20/22 Prazosin [Minipress] 5 mg PO HS PRN 07/20/22 07/20/22 clonazePAM [KlonoPIN] 1 mg PO TID PRN 07/20/22 07/20/22 Previous Rx's Medication Instructions Recorded Metoclopramide HCl [Reglan] 5 mg PO Q6H PRN #30 tablet 02/17/21 Allergies Allergy/AdvReac Type Severity Reaction Status Date / Time bupropion [From Wellbutrin] AdvReac CAUSES Verified 07/20/22 08:50 SEIZURES Review of Systems ROS Statement: Those systems with pertinent positive or pertinent negative responses have been documented in the HPI. ROS Other: All systems not noted in ROS Statement are negative. Past Medical History Past Medical History: GERD/Reflux Additional Past Medical History / Comment(s): pulmonary stenosis History of Any Multi-Drug Resistant Organisms: None Reported Past Surgical History: No Surgical Hx Reported Past Anesthesia/Blood Transfusion Reactions: No Reported Reaction Past Psychological History: ADD/ADHD, Anxiety, Bipolar, Depression Smoking Status: Vaper Past Alcohol Use History: Rare Past Drug Use History: Marijuana - Past Family History Father Additional Family Medical History / Comment(s): add, smoker Mother Family Medical History: Hypertension, Thyroid Disorder Additional Family Medical History / Comment(s): cataracts, detatched retina, scleraderma, polymyocytis General Exam Limitations: no limitations General appearance: alert, in no apparent distress Head exam: Present: atraumatic, normocephalic, normal inspection Eye exam: Present: normal appearance, PERRL, EOMI. Absent: scleral icterus, conjunctival injection, periorbital swelling ENT exam: Present: normal exam, mucous membranes moist Neck exam: Present: normal inspection, full ROM Respiratory exam: Present: normal lung sounds bilaterally. Absent: respiratory distress, wheezes, rales, rhonchi, stridor Cardiovascular Exam: Present: regular rate, normal rhythm, normal heart sounds. Absent: systolic murmur, diastolic murmur, rubs, gallop, clicks GI/Abdominal exam: Present: soft, normal bowel sounds. Absent: distended, tenderness, guarding, rebound, rigid Extremities exam: Present: normal inspection. Absent: pedal edema, joint swelling Back exam: Present: normal inspection Neurological exam: Present: alert, oriented X3, CN II-XII intact Psychiatric exam: Present: flat affect. Absent: homicidal ideation, suicidal ideation Expanded Focused psych exam: Present: loose associations Skin exam: Present: warm, dry, intact, normal color. Absent: rash Course Vital Signs 07/20/22 08:45 Temperature 98 F Pulse Rate 110 H Respiratory 18 Rate Blood Pressure 140/83 O2 Sat by Pulse 95 Oximetry Medical Decision Making - Medical Decision Making Was pt. sent in by a medical professional or institution (, PA, ENTRY LEVEL ACCOUNT MANAGER, urgent care, hospital, or intermediate...) When possible be specific @ -No Did you speak to anyone other than the patient for history (EMS, parent, family, police, friend...)? What history was obtained from this source @ -Father Did you review nursing and triage notes (agree or disagree)? Why? @ -I reviewed and agree with nursing and triage notes Were old charts reviewed (outside hosp., previous admission, EMS record, old EKG, old radiological studies, urgent care reports/EKG's, intermediate records)? Report findings @ -No old charts were reviewed Differential Diagnosis (chest pain, altered mental status, abdominal pain women, abdominal pain men, vaginal bleeding, weakness, fever, dyspnea, syncope, headache, dizziness, GI bleed, back pain, seizure, CVA, palpatations, mental health, musculoskeletal)? @ -Differential Mental Health Depression, anxiety, bipolar, psychosis, schizophrenia, borderline personality, situational depression, adjustment disorder, behavioral disorder, brain tumor, malingering, substance abuse, encephalopathy, medication reaction, dementia, hypothyroidism, degenerative neurologic disorder, lupus.... This is not meant to be all-inclusive list EKG interpreted by me (3pts min.). @ -None done X-rays interpreted by me (1pt min.). @ -None done CT interpreted by me (1pt min.). @ -None done U/S interpreted by me (1pt. min.). @ -None done What testing was considered but not performed or refused? (CT, X-rays, U/S, labs)? Why? @ -None What meds were considered but not given or refused? Why? @ -None Did you discuss the management of the patient with other professionals (professionals i.e. , PA, ENTRY LEVEL ACCOUNT MANAGER, lab, RT, psych nurse, social services counselor, probate lawyer, teacher, residential care officer, case repairer)? Give summary @ -No Was smoking cessation discussed for >3mins.? @ -No Was critical care preformed (if so, how long)? @ -No Were there social determinants of health that impacted care today? How? (Homelessness, low income, unemployed, alcoholism, drug addiction, transportation, low edu. Level, literacy, decrease access to med. care, residential, rehab)? @ -No Was there de-escalation of care discussed even if they declined (Discuss DNR or withdrawal of care, Hospice)? DNR status @ -No What co-morbidities impacted this encounter? (DM, HTN, Smoking, COPD, CAD, Cancer, CVA, ARF, Chemo, Hep., AIDS, mental health diagnosis, sleep apnea, morbid obesity)? @ -None Was patient admitted / discharged? Hospital course, mention meds given and route, prescriptions, significant lab abnormalities, going to OR and other pertinent info. @ -22-year-old female presenting to the emergency room with her father with concerns regarding visual hallucinations and according to her father manic-like behavior with inability to complete tasks and not sleeping over the last several days. No suicidal or homicidal ideations. No auditory hallucinations. She denies any other complaints or concerns. Blood alcohol level 0.00. No indication for medical workup. Will obtain urine drug screen. Will patient from a medical standpoint for EPS evaluation. Patient placed in psychiatric down with belongings removed and psychiatric room. Will maintain saf ety. EPS evaluation completed. Patient to be admitted to psychiatric unit for further evaluation and treatment pending negative Covid test. Will discharge and stable and safe condition for transfer to psychiatric unit for inpatient psychiatric services. Undiagnosed new problem with uncertain prognosis? @ -No Drug Therapy requiring intensive monitoring for toxicity (Heparin, Nitro, Insulin, Cardizem)? @ -No Were any procedures done? @ -No Diagnosis/symptom? @ -Psychosis NOS Acute, or Chronic, or Acute on Chronic? @ -Acute on chronic Uncomplicated (without systemic symptoms) or Complicated (systemic symptoms)? @ -Complicated Side effects of treatment? @ -No Exacerbation, Progression, or Severe Exacerbation? @ -No Poses a threat to life or bodily function? How? (Chest pain, USA, ID, pneumonia, PE, COPD, DKA, ARF, appy, cholecystitis, CVA, Diverticulitis, Homicidal, S uicidal, threat to staff... and all critical care pts) @ -Yes Case discussed with Dr. Swartz. - Lab Data Lab Results 07/20/22 Range/Units 09:17 Urine Opiates Screen Not Detected (NotDetected) Ur Oxycodone Screen Not Detected (NotDetected) Urine Methadone Screen Not Detected (NotDetected) Ur Propoxyphene Screen Not Detected (NotDetected) Ur Barbiturates Screen Not Detected (NotDetected) U Tricyclic Antidepress Not Detected (NotDetected) Ur Phencyclidine Scrn Not Detected (NotDetected) Ur Amphetamines Screen Not Detected (NotDetected) U Methamphetamines Scrn Not Detected (NotDetected) U Benzodiazepines Scrn Not Detected (NotDetected) Urine Cocaine Screen Not Detected (NotDetected) U Marijuana (THC) Screen Detected H (NotDetected) - Radiology Data Radiology results: report reviewed, image reviewed Disposition Clinical Impression: Psychosis Disposition: TRANSFER TO PSYCH HOSP/UNIT Condition: Stable Is patient prescribed a controlled substance at d/c from ED?: No Referrals: Alan Jacobs MD [Primary Care Provider] - 1-2 days Time of Disposition: 14:50
[2022-07-20 09:44] LABS: Amphetamine Screen,Urine Not Detected (NotDetected); Barbiturate Screen,Urine Not Detected (NotDetected); Benzodiazepines Screen,Urine Not Detected (NotDetected); Cocaine Screen,Urine Not Detected (NotDetected); Methadone Screen, Urine Not Detected (NotDetected); Opiate Screen,Urine Not Detected (NotDetected); Oxycodone Screen, Urine Not Detected (NotDetected); Phencyclidine Screen,Urine Not Detected (NotDetected); Tricyclic Antidepressant,Urine Not Detected (NotDetected); Urn Cannabinoid Scrn Detected (NotDetected)
[2022-07-20] MEDS ORDERED: ACETAMINOPHEN TAB 325 MG TAB PO PRN (16:34)
[2022-07-20] MEDS ORDERED: MAG HYDROX/AL HYDROX/SIMETH 30 ML CUP PO PRN (16:34)
[2022-07-20] MEDS ORDERED: MAGNESIUM HYDROXIDE 2,400 MG/10 ML CUP PO PRN (16:34)
[2022-07-20] MEDS: hydrOXYzine pamoate 25 MG CAP PO PRN (19:53)
[2022-07-20] MEDS: MELATONIN 5 MG TABLET PO SCH (19:53)
[2022-07-20] MEDS ORDERED: OLANZapine 10 MG VIAL IM PRN (20:02)
[2022-07-20] MEDS: OLANZapine 5 MG TAB PO PRN (20:08)
[2022-07-20 20:35] LABS: ALT 41 U/L (4-34); AST 33 U/L (14-36); African American GFR (CKD) >90 (>60 ml/min/1.73 sqM); Albumin 4.7 g/dL (3.5-5.0); Alkaline Phosphatase 70 U/L (38-126); Anion Gap 11 mmol/L; Blood Urea Nitrogen 9 mg/dL (7-17); Calcium 9.9 mg/dL (8.4-10.2); Carbon Dioxide 26 mmol/L (22-30); Chloride 103 mmol/L (98-107); Glucose 106 mg/dL (74-99); Non-African American GFR(CKD) >90 (>60 ml/min/1.73 sqM); Potassium 3.7 mmol/L (3.5-5.1); Sodium 140 mmol/L (137-145); Total Bilirubin 1.4 mg/dL (0.2-1.3); Total Protein 7.6 g/dL (6.3-8.2)
[2022-07-20 20:45] LABS: Basophils # (A) 0.1 k/uL (0-0.2); Basophils % (A) 1 %; Eosinophils # (A) 0.1 k/uL (0-0.7); Eosinophils % (A) 1 %; HCT 34.5 % (34.0-46.0); HGB 12.9 gm/dL (11.4-16.0); Hyperchromasia Marked; Lymphocytes # (A) 1.7 k/uL (1.0-4.8); Lymphocytes % (A) 15 %; MCH 34.6 pg (25.0-35.0); MCHC 37.3 g/dL (31.0-37.0); MCV 92.7 fL (80.0-100.0); Mean Platelet Volume 7.9; Monocytes # (A) 0.6 k/uL (0-1.0); Monocytes % (A) 5 %; Neutrophils # (A) 8.9 k/uL (1.3-7.7); Neutrophils % (A) 77 %; Platelet Count 260 k/uL (150-450); RBC 3.72 m/uL (3.80-5.40); RDW 14.7 % (11.5-15.5); WBC 11.6 k/uL (3.8-10.6)
--- NOTE | 2022-07-20 22:37 | P.PN ---
Progress Note - Text Progress Note Date: 07/20/22 Attempted to see the patient in the mental health unit at 2200 on 07/20. Informed by the mental health unit RN that the patient is actively psychotic and is inappropriate for evaluation at this time.
[2022-07-21] MEDS: OLANZapine 5 MG TAB PO PRN (01:17)
[2022-07-21] MEDS: hydrOXYzine pamoate 25 MG CAP PO PRN ×2 (01:17→23:57)
[2022-07-21 01:52] LABS: Appearance,Urine Cloudy (Clear); Bilirubin,Urine Negative (Negative); Blood,Urine Trace (Negative); Color,Urine Yellow; Glucose,Urine (UA) Negative (Negative); Ketones,Urine 1+ (Negative); Leukocyte Esterase,Urine Small (Negative); Mucus,Urine Few /hpf; Nitrite,Urine Negative (Negative); Protein,Urine Trace (Negative); RBC,Urine 9 /hpf (0-5); Specific Gravity,Urine 1.026 (1.001-1.035); Squamous Epithelial Cell,Urine 19 /hpf (0-4); Urobilinogen,Urine <2.0 mg/dL (<2.0); WBC,Urine 7 /hpf (0-5)
[2022-07-21] MEDS ORDERED: QUEtiapine 100 MG TAB PO STA (03:25)
[2022-07-21 09:52] LABS: Chol/HDL Ratio 3.28 Ratio; LDL Cholesterol,Calculated 87.2 mg/dL (0.0-131.0)
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
[2022-07-21] MEDS: LITHIUM CARBONATE 300 MG CAP PO SCH ×2 (11:40→20:21)
[2022-07-21] MEDS: NICOTINE 7MG/24HR PATCH TRANSDERM SCH (11:41)
[2022-07-21] MEDS: OLANZapine 2.5 MG TAB PO SCH (11:51)
[2022-07-21] MEDS: MELATONIN 5 MG TABLET PO SCH (20:21)
[2022-07-21] MEDS: QUEtiapine 100 MG TAB PO SCH (20:21)
--- NOTE | 2022-07-21 20:29 | XR ---
EXAMINATION TYPE: XR abdomen acute w cxr DATE OF EXAM: 07/21/2022 COMPARISON: 09/28/2012 HISTORY: Chest pain. Abdominal pain. Possible foreign body. TECHNIQUE: 5 views FINDINGS: Heart and mediastinum are normal. Lungs are clear. Diaphragm is normal. Bony thorax is inta ct. No evidence of radiopaque foreign body in the chest abdomen pelvis. No pathologic calcifications over the kidneys. Bony structures are intact. IMPRESSION: Normal chest. No sign of acute abdomen and pelvis. No evidence of a foreign body.
[2022-07-21] MEDS ORDERED: HALOPERIDOL LACTATE 5 MG/ML 1 ML VIAL IM ONE (20:39)
[2022-07-21] MEDS ORDERED: OLANZapine 5 MG TAB PO SCH (21:00)
[2022-07-21] MEDS ORDERED: OLANZapine 10 MG VIAL IM STA (23:30)
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
[2022-07-22] MEDS: LITHIUM CARBONATE 300 MG CAP PO SCH (08:52)
[2022-07-22] MEDS: OLANZapine 2.5 MG TAB PO SCH (08:52)
[2022-07-22] MEDS: NICOTINE 7MG/24HR PATCH TRANSDERM SCH (08:53)
[2022-07-22] MEDS ORDERED: LORazepam 1 MG TAB PO PRN (13:48)
--- NOTE | 2022-07-22 14:02 | P.PN ---
Progress Note - Text Progress Note Date: 07/22/22 Interval History: Patient was seen bedside with sitter present. She is A&Ox2 with self and place. She believes it to be Saturday when asked but appears to have poor concentration to be able to think through the months. Patient's orientation does not appear to fluctuate between daytime or nighttime. Patient continues to have nonsensical flight of ideas and appears to be responding to internal stimuli. She has nonpurposeful movements that are impulsive but responds to the sitter's and this provider's redirection. Patient is a poor historian and unable to provide further history just makes statements unrelated to the questions being asked. Per staff report, patient did not sleep last night despite being given Zyprexa 15 mg total, Seroquel 100 mg, melatonin 5 mg, and Haldol 5 mg. Patient was attempting to run down the zelaya overnight despite these medications. Hospitalist team was notified and EKG was ordered for pulse of 141. EKG reveals NSR with tachycardia. At this time patient does not endorse any suicidal or homicidal ideations, intent or plan. Patient is responding to internal stimuli. Patient denies any side effects from the medications and has been compliant with meds. Mental Status Exam: General Appearance: Patient appears to be stated age is alert, somewhat directable, and attempts to cooperate. Patient appears to have poor hygiene and grooming. Hair colored aqua. Mild tremor of L arm Behavior: Psychomotor agitation, restlessness, non-purposeful standing that is inappropriate to social context Speech: Patient's speech is fluent and hyperverbal but not pressured Mood/Affect: Patient reports their mood is low, affect is labile. Suicidality/Homicidality: Patient denies having any homicidal ideation intent or plan. Denies any suicidal ideations intent or plan Perceptions: Responding to internal stimuli Though content/process: Flight of ideas, tangential, bizarre statements Memory and concentration: Reduced. Cannot spell "WORLD" backwards or say the days of the week backwards Judgment and insight: Poor and impulsive No rigidity on exam, 2+ Left and right biceps reflexes Assessment Bipolar I disorder, currently manic, mixed, with psychotic features Cannabis use disorder Nicotine dependence R/O delirium due to neuropsychiatric etiologies PLAN: -Patient is admitted under voluntary status to MHU for stabilization of psychiatric symptoms and safety. Patient signed adult voluntary form and medication consent and is placed in patient's chart. -Medications: - Increase [place] to 450 mg BID for mood stabilization - Increase Zyprexa to 10 mg qHS - Start Ativan 1 mg TID for agitation - Stop Seroquel 100 mg - Increase Melatonin to 10 mg qHS - Continue 1:1 for safety - QTc 477 on EKG on 07/22/22 - Will veterans rehabilitation counselor on substance abuse via motivational interviewing. - Might consider CT/Neuro consult - Zyprexa and Vistaril PRN for agitation - NRT - ordered -Patient was informed of the risks, benefits and side effects of the medication and patient verbally consented to taking the medications. Patient signed med consent form and was placed in chart. -Internal Medicine consult to perform medical evaluation and physical. -SW on board for discharge planning. Encourage patient to participate in groups to work on coping skills.
[2022-07-22] MEDS: LORazepam 1 MG TAB PO SCH ×2 (14:04→19:59)
[2022-07-22] MEDS: OLANZapine 10 MG TAB PO SCH (19:45)
[2022-07-22] MEDS: MELATONIN 5 MG TABLET PO SCH (19:46)
[2022-07-22] MEDS: QUEtiapine 100 MG TAB PO SCH (19:46)
[2022-07-22] MEDS: LITHIUM CARBONATE 150 MG CAP PO SCH (19:46)
[2022-07-22] MEDS: hydrOXYzine pamoate 25 MG CAP PO PRN (19:58)
[2022-07-22] MEDS ORDERED: chlorproMAZINE 25 MG/ML 2 ML AMP IM STA (21:46)
[2022-07-22] MEDS ORDERED: flUPHENAZine 2.5 MG/ML (MDV) 10 ML VIAL IM PRN (22:11)
--- NOTE | 2022-07-23 12:51 | P.PN ---
Progress Note - Text Progress Note Date: 07/23/22 Interval History: Patient was seen resting in bed accompanied by her one-to-one sitter. The patient is currently sedated and is sleeping calmly and peacefully. She does not appear to be in any acute distress at this time. As per discussion with staff, the patient was agitated and required administration of Prolixin 2.5 mg IM at approximately 2250 last night as the patient was trying to scratch herself, bite her arm, and pull out her hair. She was "yelling at cats in her room and then started crying." She was adherent with her medications last night. At this time, it appears therapeutic to have patient continue to rest as she is coming down from a manic episode. We will reassess tomorrow. Mental Status Exam: General Appearance: Patient appears to be stated age is calmly sleeping and appears in no acute distress. Behavior: Patient is calmly lying down in bed sleeping peacefully. Speech: Patient's speech could not be assessed. Mood/Affect: Mood could not be assessed, affect is somnolent. Suicidality/Homicidality: could not be assessed. Perceptions: could not be assessed. Though content/process: could not be assessed. Memory and concentration: could not be assessed. Judgment and insight: could not be assessed. Vital Signs Temp 97.9 F 07/22/22 19:53 Pulse 124 H 07/23/22 00:00 Resp 20 07/23/22 00:00 BP 95/70 07/22/22 22:42 Pulse Ox 98 07/23/22 00:00 FiO2 Intake & Output 07/22/22 07/23/22 07/23/22 18:59 06:59 18:59 Weight 93.3 kg Assessment Bipolar I disorder, currently manic, mixed, with psychotic features Cannabis use disorder Nicotine dependence R/O delirium due to neuropsychiatric etiologies Plan: -Patient continues to meet criteria for inpatient psychiatric admission for symptom stabilization and safety. Patient has signed adult voluntary form and medication consent and was placed in patient's chart. -Medications: Continue lithium 450 mg twice daily for mood stabilization Continue Zyprexa 10 mg at bedtime for psychosis/mood stabilization Continue melatonin 10 mg at bedtime for insomnia Continue ativan and prolixin PRN for agitation -NRT - nicotine patch -SW on board for discharge planning. Encouraged the patient to participate in milieu when appropriate.
[2022-07-23] MEDS: LORazepam 1 MG TAB PO SCH ×3 (12:53→20:33)
[2022-07-23] MEDS: NICOTINE 7MG/24HR PATCH TRANSDERM SCH ×2 (12:53→20:33)
[2022-07-23] MEDS: LITHIUM CARBONATE 150 MG CAP PO SCH ×2 (17:26→20:33)
[2022-07-23] MEDS: OLANZapine 10 MG TAB PO SCH (20:34)
[2022-07-23] MEDS: MELATONIN 5 MG TABLET PO SCH (20:34)
[2022-07-24] MEDS: NICOTINE 7MG/24HR PATCH TRANSDERM SCH (08:41)
[2022-07-24] MEDS: LITHIUM CARBONATE 150 MG CAP PO SCH ×2 (08:41→20:46)
[2022-07-24] MEDS: LORazepam 1 MG TAB PO SCH ×3 (08:41→20:46)
[2022-07-24] MEDS ORDERED: OLANZapine 5 MG TAB PO SCH ×2 (09:00→21:00)
--- NOTE | 2022-07-24 10:29 | P.PN ---
Progress Note - Text Progress Note Date: 07/24/22 Interval History: Patient was seen in her room and agreeable to speak with this commercial loan underwriter in the office. Currently, the patient is not reporting any suicidal or homicidal ideation, intention, and/or plan. She reports that she feels "embarrassed" due to her manic episode. She is currently not endorsing any auditory or visual hallucinations. She reports no paranoia or other delusions. She states that she continues to have racing thoughts but they're significantly improved over the past 2 days. She does admit that she was not sleeping prior to her sleep yesterday. The patient does admit that she has a history of nonadherence with her medications. She is agreeable to transitioning to Invega and oriented to be placed on a long-acting injectable medication. She is otherwise not reporting any side effects or medications. Mental Status Exam: General Appearance: Patient appears to be stated age, with fair hygiene and grooming, green dyed hair, and wearing glasses Behavior: Patient is calmly seated upright in her chair without any agitated behavior Speech: Patient's speech spontaneous, low in volume. Mood/Affect: Mood is "better." Affect is constricted but euthymic. Suicidality/Homicidality: Patient is not endorsing any suicidal or homicidal ideation Perceptions: Patient is not endorsing any auditory or visual hallucinations Though content/process: Thought process appears to be linear and logical. No delusional thought content is endorsed. Memory and concentration: Patient is unable to recall the events of her hany. She is however displaying intact memory and concentration today. Judgment and insight: Improving Laboratory Results WBC 11.6 k/uL (3.8-10.6) H 07/20/22 19:40 RBC 3.72 m/uL (3.80-5.40) L 07/20/22 19:40 Hgb 12.9 gm/dL (11.4-16.0) 07/20/22 19:40 Hct 34.5 % (34.0-46.0) 07/20/22 19:40 MCV 92.7 fL (80.0-100.0) 07/20/22 19:40 MCH 34.6 pg (25.0-35.0) 07/20/22 19:40 MCHC 37.3 g/dL (31.0-37.0) H 07/20/22 19:40 RDW 14.7 % (11.5-15.5) 07/20/22 19:40 Plt Count 260 k/uL (150-450) 07/20/22 19:40 MPV 7.9 07/20/22 19:40 Neutrophils % 77 % 07/20/22 19:40 Lymphocytes % 15 % 07/20/22 19:40 Monocytes % 5 % 07/20/22 19:40 Eosinophils % 1 % 07/20/22 19:40 Basophils % 1 % 07/20/22 19:40 Neutrophils # 8.9 k/uL (1.3-7.7) H 07/20/22 19:40 Lymphocytes # 1.7 k/uL (1.0-4.8) 07/20/22 19:40 Monocytes # 0.6 k/uL (0-1.0) 07/20/22 19:40 Eosinophils # 0.1 k/uL (0-0.7) 07/20/22 19:40 Basophils # 0.1 k/uL (0-0.2) 07/20/22 19:40 Hyperchromasia Marked 07/20/22 19:40 Sodium 140 mmol/L (137-145) 07/20/22 19:40 Potassium 3.7 mmol/L (3.5-5.1) 07/20/22 19:40 Chloride 103 mmol/L (98-107) 07/20/22 19:40 Carbon Dioxide 26 mmol/L (22-30) 07/20/22 19:40 Anion Gap 11 mmol/L 07/20/22 19:40 BUN 9 mg/dL (7-17) 07/20/22 19:40 Creatinine 0.70 mg/dL (0.52-1.04) 07/20/22 19:40 Est GFR (CKD-EPI)AfAm >90 (>60 ml/min/1.73 sqM) 07/20/22 19:40 Est GFR (CKD-EPI)NonAf >90 (>60 ml/min/1.73 sqM) 07/20/22 19:40 Glucose 106 mg/dL (74-99) H 07/20/22 19:[address] Glu mg/dL 86 07/20/22 19:40 Hemoglobin A1c 4.6 % (0.0-6.0) 07/20/22 19:40 Calcium 9.9 mg/dL (8.4-10.2) 07/20/22 19:40 Total Bilirubin 1.4 mg/dL (0.2-1.3) H 07/20/22 19:40 AST 33 U/L (14-36) 07/20/22 19:40 ALT 41 U/L (4-34) H 07/20/22 19:40 Alkaline Phosphatase 70 U/L (38-126) 07/20/22 19:40 Total Protein 7.6 g/dL (6.3-8.2) 07/20/22 19:40 Albumin 4.7 g/dL (3.5-5.0) 07/20/22 19:40 Triglycerides 113.00 mg/dL (0.00-149.00) 07/20/22 19:40 Cholesterol 158.00 mg/dL (0.00-200.00) 07/20/22 19:40 LDL Cholesterol, Calc 87.2 mg/dL (0.0-131.0) 07/20/22 19:40 VLDL Cholesterol, Calc 22.60 mg/dL (5.00-40.00) 07/20/22 19:40 HDL Cholesterol 48.20 mg/dL (40.00-60.00) 07/20/22 19:40 Cholesterol/HDL Ratio 3.28 Ratio 07/20/22 19:40 TSH 3.930 mIU/L (0.465-4.680) 07/20/22 19:40 Urine Color Yellow 07/21/22 00:25 Urine Appearance Cloudy (Clear) H 07/21/22 00:25 Urine pH 6.0 (5.0-8.0) 07/21/22 00:25 Ur Specific [place] 1.026 (1.001-1.035) 07/21/22 00:25 Urine Protein Trace (Negative) H 07/21/22 00:25 Urine Glucose (UA) Negative (Negative) 07/21/22 00:25 Urine Ketones 1+ (Negative) H 07/21/22 00:25 Urine Blood Trace (Negative) H 07/21/22 00:25 Urine Nitrite Negative (Negative) 07/21/22 00:25 Urine Bilirubin Negative (Negative) 07/21/22 00:25 Urine Urobilinogen <2.0 mg/dL (<2.0) 07/21/22 00:25 Ur Leukocyte Esterase Small (Negative) H 07/21/22 00:25 Urine RBC 9 /hpf (0-5) H 07/21/22 00:25 Urine WBC 7 /hpf (0-5) H 07/21/22 00:25 Ur Squamous Epith Cells 19 /hpf (0-4) H 07/21/22 00:25 Urine Mucus Few /hpf (None) H 07/21/22 00:25 Urine HCG, Qual Not Detected (Not Detectd) 07/21/22 00:25 Urine Opiates Screen Not Detected (NotDetected) 07/20/22 09:17 Ur Oxycodone Screen Not Detected (NotDetected) 07/20/22 09:17 Urine Methadone Screen Not Detected (NotDetected) 07/20/22 09:17 Ur Propoxyphene Screen Not Detected (NotDetected) 07/20/22 09:17 Ur Barbiturates Screen Not Detected (NotDetected) 07/20/22 09:17 U Tricyclic Antidepress Not Detected (NotDetected) 07/20/22 09:17 Ur Phencyclidine Scrn Not Detected (NotDetected) 07/20/22 09:17 Ur Amphetamines Screen Not Detected (NotDetected) 07/20/22 09:17 U Methamphetamines Scrn Not Detected (NotDetected) 07/20/22 09:17 U Benzodiazepines Scrn Not Detected (NotDetected) 07/20/22 09:17 Urine Cocaine Screen Not Detected (NotDetected) 07/20/22 09:17 U Marijuana (THC) Screen Detected (NotDetected) H 07/20/22 09:17 Coronavirus (PCR) Not Detected (Not Detectd) 07/20/22 14:50 Vital Signs Temp 97.9 F 07/22/22 19:53 Pulse 124 H 07/23/22 00:00 Resp 20 07/23/22 00:00 BP 95/70 07/22/22 22:42 Pulse Ox 98 07/23/22 00:00 FiO2 Assessment Bipolar I disorder, currently manic, mixed, with psychotic features Cannabis use disorder Nicotine dependence R/O delirium due to neuropsychiatric etiologies Plan: -Patient continues to meet criteria for inpatient psychiatric admission for symptom stabilization and safety. Patient has signed adult voluntary form and medication consent and was placed in patient's chart. -Medications: Continue lithium 450 mg twice daily for mood stabilization Start invega 3 mg daily and decrease zyprexa to 5 mg at bedtime as we cross- titrate with plans to transition to ANDRADE invega sustenna. Continue melatonin 10 mg at bedtime for insomnia Continue ativan and prolixin PRN for agitation -NRT - nicotine patch -SW on board for discharge planning. Encouraged the patient to participate in milieu when appropriate.
[2022-07-24] MEDS: MELATONIN 5 MG TABLET PO SCH (20:46)
[2022-07-25 07:02] VITALS: RESP 14
[2022-07-25] MEDS: NICOTINE 7MG/24HR PATCH TRANSDERM SCH (08:11)
[2022-07-25] MEDS: LITHIUM CARBONATE 150 MG CAP PO SCH ×2 (08:11→21:19)
[2022-07-25] MEDS: LORazepam 1 MG TAB PO SCH ×3 (08:11→21:19)
[2022-07-25] MEDS ORDERED: PALIPERIDONE 3 MG TAB.ER.24 PO SCH (09:00)
--- NOTE | 2022-07-25 10:24 | P.PN ---
Progress Note - Text Progress Note Date: 07/25/22 Interval History: Patient was seen in her room and agreeable to speak with this junior technical writer in her room. Currently, the patient is not reporting any suicidal or homicidal ideation, intention, and/or plan. She is not reporting any auditory or visual hallucinations. She does endorse mild paranoia but is able to identify she is feeling paranoid without cause. She continues to report an overall decrease in her manic symptoms. She states her racing thoughts, mood swings, and energy has been returning "back to normal." She has been adherent with her medication and is not reporting any side effects. The patient denies any chest pain, SOB, light-headedness, or other cardiac issues. Mental Status Exam: General Appearance: Patient appears to be stated age, with fair hygiene and grooming, green dyed hair, and wearing glasses Behavior: Patient is calmly seated upright in her chair without any agitated behavior Speech: Patient's speech spontaneous, low in volume. Mood/Affect: Mood is "feeling a little better." Affect with more range today. Euthymic. Suicidality/Homicidality: Patient is not endorsing any suicidal or homicidal ideation Perceptions: Patient is not endorsing any auditory or visual hallucinations Though content/process: Thought process appears to be linear and logical. No delusional thought content is endorsed. Memory and concentration: Fair Judgment and insight: Improving Vital Signs Temp 97.6 F 07/25/22 06:31 Pulse 96 07/25/22 06:31 Resp 14 07/25/22 06:31 BP 106/58 07/25/22 06:31 Pulse Ox 98 07/23/22 00:00 FiO2 Assessment Bipolar I disorder, currently manic, mixed, with psychotic features Cannabis use disorder Nicotine dependence Plan: -Patient continues to meet criteria for inpatient psychiatric admission for symptom stabilization and safety. Patient has signed adult voluntary form and m edication consent and was placed in patient's chart. -Medications: Continue lithium 450 mg twice daily for mood stabilization - [place] level ordered for tomorrow. Increase invega to 3 mg twice daily and discontinue zyprexa at bedtime as we cross-titrate with plans to transition to ANDRADE invega sustenna. Continue melatonin 10 mg at bedtime for insomnia Continue ativan and prolixin PRN for agitation -NRT - nicotine patch -SW on board for discharge planning. Encouraged the patient to participate in milieu when appropriate.
[2022-07-25] MEDS: PALIPERIDONE 3 MG TAB.ER.24 PO SCH (21:19)
[2022-07-25] MEDS: MELATONIN 5 MG TABLET PO SCH (21:20)
[2022-07-26] MEDS: LITHIUM CARBONATE 150 MG CAP PO SCH ×2 (08:50→20:51)
[2022-07-26] MEDS: NICOTINE 7MG/24HR PATCH TRANSDERM SCH (08:51)
[2022-07-26] MEDS: PALIPERIDONE 3 MG TAB.ER.24 PO SCH (08:51)
[2022-07-26] MEDS: LORazepam 1 MG TAB PO SCH ×3 (08:51→20:51)
[2022-07-26] MEDS ORDERED: PALIPERIDONE IM 234 MG/1.5 ML SYG IM STA (09:33)
--- NOTE | 2022-07-26 11:25 | P.PN ---
Progress Note - Text Progress Note Date: 07/26/22 Interval History: Patient was seen in her room and agreeable to speak with this mortgage or loan underwriter in her room. Currently, the patient is not reporting any suicidal or homicidal ideation, intention, and/or plan. She is not reporting any auditory or visual hallucinations. She reports significant improvement in regards her target symptoms of psychosis and mood stability. She is not endorsing any racing thoughts, mood lability, or paranoia. She is agreeable to the transition to In [facility]. She is expressing no other issues or concerns at this time. She denies any chest pain, shortness of breath, palpitations or other concerns. Mental Status Exam: General Appearance: Patient appears to be stated age, with fair hygiene and grooming, green dyed hair, and wearing glasses Behavior: Patient is calmly seated upright in her chair without any agitated behavior Speech: Patient's speech spontaneous, low in volume. Mood/Affect: Mood is "feeling good" Affect with appropriate range. Euthymic. Suicidality/Homicidality: Patient is not endorsing any suicidal or homicidal ideation Perceptions: Patient is not endorsing any auditory or visual hallucinations Though content/process: Thought process appears to be linear and logical. No delusional thought content is endorsed. Memory and concentration: Fair Judgment and insight: Improving Vital Signs Temp 97.5 F L 07/26/22 06:29 Pulse 88 07/26/22 06:29 Resp 14 07/26/22 06:29 BP 133/61 07/26/22 06:29 Pulse Ox 98 07/23/22 00:00 FiO2 Laboratory Results WBC 11.6 k/uL (3.8-10.6) H 07/20/22 19:40 RBC 3.72 m/uL (3.80-5.40) L 07/20/22 19:40 Hgb 12.9 gm/dL (11.4-16.0) 07/20/22 19:40 Hct 34.5 % (34.0-46.0) 07/20/22 19:40 MCV 92.7 fL (80.0-100.0) 07/20/22 19:40 MCH 34.6 pg (25.0-35.0) 07/20/22 19:40 MCHC 37.3 g/dL (31.0-37.0) H 07/20/22 19:40 RDW 14.7 % (11.5-15.5) 07/20/22 19:40 Plt Count 260 k/uL (150-450) 07/20/22 19:40 MPV 7.9 07/20/22 19:40 Neutrophils % 77 % 07/20/22 19:40 Lymphocytes % 15 % 07/20/22 19:40 Monocytes % 5 % 07/20/22 19:40 Eosinophils % 1 % 07/20/22 19:40 Basophils % 1 % 07/20/22 19:40 Neutrophils # 8.9 k/uL (1.3-7.7) H 07/20/22 19:40 Lymphocytes # 1.7 k/uL (1.0-4.8) 07/20/22 19:40 Monocytes # 0.6 k/uL (0-1.0) 07/20/22 19:40 Eosinophils # 0.1 k/uL (0-0.7) 07/20/22 19:40 Basophils # 0.1 k/uL (0-0.2) 07/20/22 19:40 Hyperchromasia Marked 07/20/22 19:40 Sodium 140 mmol/L (137-145) 07/20/22 19:40 Potassium 3.7 mmol/L (3.5-5.1) 07/20/22 19:40 Chloride 103 mmol/L (98-107) 07/20/22 19:40 Carbon Dioxide 26 mmol/L (22-30) 07/20/22 19:40 Anion Gap 11 mmol/L 07/20/22 19:40 BUN 9 mg/dL (7-17) 07/20/22 19:40 Creatinine 0.70 mg/dL (0.52-1.04) 07/20/22 19:40 Est GFR (CKD-EPI)AfAm >90 (>60 ml/min/1.73 sqM) 07/20/22 19:40 Est GFR (CKD-EPI)NonAf >90 (>60 ml/min/1.73 sqM) 07/20/22 19:40 Glucose 106 mg/dL (74-99) H 07/20/22 19:[address] Glu mg/dL 86 07/20/22 19:40 Hemoglobin A1c 4.6 % (0.0-6.0) 07/20/22 19:40 Calcium 9.9 mg/dL (8.4-10.2) 07/20/22 19:40 Total Bilirubin 1.4 mg/dL (0.2-1.3) H 07/20/22 19:40 AST 33 U/L (14-36) 07/20/22 19:40 ALT 41 U/L (4-34) H 07/20/22 19:40 Alkaline Phosphatase 70 U/L (38-126) 07/20/22 19:40 Total Protein 7.6 g/dL (6.3-8.2) 07/20/22 19:40 Albumin 4.7 g/dL (3.5-5.0) 07/20/22 19:40 Triglycerides 113.00 mg/dL (0.00-149.00) 07/20/22 19:40 Cholesterol 158.00 mg/dL (0.00-200.00) 07/20/22 19:40 LDL Cholesterol, Calc 87.2 mg/dL (0.0-131.0) 07/20/22 19:40 VLDL Cholesterol, Calc 22.60 mg/dL (5.00-40.00) 07/20/22 19:40 HDL Cholesterol 48.20 mg/dL (40.00-60.00) 07/20/22 19:40 Cholesterol/HDL Ratio 3.28 Ratio 07/20/22 19:40 TSH 3.930 mIU/L (0.465-4.680) 07/20/22 19:40 Urine Color Yellow 07/21/22 00:25 Urine Appearance Cloudy (Clear) H 07/21/22 00:25 Urine pH 6.0 (5.0-8.0) 07/21/22 00:25 Ur Specific [place] 1.026 (1.001-1.035) 07/21/22 00:25 Urine Protein Trace (Negative) H 07/21/22 00:25 Urine Glucose (UA) Negative (Negative) 07/21/22 00:25 Urine Ketones 1+ (Negative) H 07/21/22 00:25 Urine Blood Trace (Negative) H 07/21/22 00:25 Urine Nitrite Negative (Negative) 07/21/22 00:25 Urine Bilirubin Negative (Negative) 07/21/22 00:25 Urine Urobilinogen <2.0 mg/dL (<2.0) 07/21/22 00:25 Ur Leukocyte Esterase Small (Negative) H 07/21/22 00:25 Urine RBC 9 /hpf (0-5) H 07/21/22 00:25 Urine WBC 7 /hpf (0-5) H 07/21/22 00:25 Ur Squamous Epith Cells 19 /hpf (0-4) H 07/21/22 00:25 Urine Mucus Few /hpf (None) H 07/21/22 00:25 Urine HCG, Qual Not Detected (Not Detectd) 07/21/22 00:25 Urine Opiates Screen Not Detected (NotDetected) 07/20/22 09:17 Ur Oxycodone Screen Not Detected (NotDetected) 07/20/22 09:17 Urine Methadone Screen Not Detected (NotDetected) 07/20/22 09:17 Ur Propoxyphene Screen Not Detected (NotDetected) 07/20/22 09:17 Ur Barbiturates Screen Not Detected (NotDetected) 07/20/22 09:17 U Tricyclic Antidepress Not Detected (NotDetected) 07/20/22 09:17 Ur Phencyclidine Scrn Not Detected (NotDetected) 07/20/22 09:17 Ur Amphetamines Screen Not Detected (NotDetected) 07/20/22 09:17 U Methamphetamines Scrn Not Detected (NotDetected) 07/20/22 09:17 U Benzodiazepines Scrn Not Detected (NotDetected) 07/20/22 09:17 Urine Cocaine Screen Not Detected (NotDetected) 07/20/22 09:17 U Marijuana (THC) Screen Detected (NotDetected) H 07/20/22 09:17 Coronavirus (PCR) Not Detected (Not Detectd) 07/20/22 14:50 Assessment Bipolar I disorder, currently manic, mixed, with psychotic features Cannabis use disorder Nicotine dependence Plan: -Patient continues to meet criteria for inpatient psychiatric admission for symptom stabilization and safety. Patient has signed adult voluntary form and medication consent and was placed in patient's chart. -Medications: Continue lithium 450 mg twice daily for mood stabilization - [place] level pending. Administrative Invega Sustenna 234 mg IM today. Discontinue oral Invega. Continue melatonin 10 mg at bedtime for insomnia Continue ativan and prolixin PRN for agitation -NRT - nicotine patch -SW on board for discharge planning. Encouraged the patient to participate in milieu when appropriate.
[2022-07-26] MEDS: MELATONIN 5 MG TABLET PO SCH (20:51)
[2022-07-27 06:43] VITALS: BP 107/57; PULSE 93; TEMP 98
[2022-07-27] MEDS: NICOTINE 7MG/24HR PATCH TRANSDERM SCH (09:14)
[2022-07-27] MEDS: LITHIUM CARBONATE 150 MG CAP PO SCH (09:15)
[2022-07-27] MEDS: LORazepam 1 MG TAB PO SCH (09:15)
--- NOTE | 2022-07-27 11:17 | P.DS ---
Providers Date of admission: 07/20/22 16:07 Expected date of discharge: 07/27/22 Attending physician: Sachin Ramirez MD Consults: 07/20/22 19:33 Consult Physician Stat Consulting Provider: Brionna Physician Consult Reason/Comments: medical mangement Do you want consulting provider notified?: Yes Primary care physician: Alan Jacobs - Discharge Diagnosis(es) (1) Severe manic bipolar 1 disorder with psychotic behavior Current Visit: Yes Status: Acute Priority: High (2) Cannabis use disorder Current Visit: Yes Status: Chronic Priority: Medium (3) Nicotine dependence Current Visit: Yes Status: Chronic Priority: Medium Hospital Course: Admission HPI: Initial psychiatric evaluation was completed by Dr. Painting on 07/21/2022 who wrote: "Patient is a single, unemployed, 22-year-old female who is presenting with suicidal ideation and substance use. HPI: Patient was brought into the emergency room department by her father due to hallucinations, "manic-like" behavior including inability to complete a task, flight of ideas and lack of sleep for the past 3 days. Her behaviors overnight included laughing inappropriately overnight, saying she was seeing people who were not present, checking doors, and running in the halls. Therefore, she was placed on 1:1. Patient was seen in the interview room this morning and appears to be less agitated this morning. She states "we got a dog in March or December. My old dog . My mother went and my dad was drinking." She then begins to cry. Afterwards, she walks to package pick up a chair in the middle of the interview and tries to leave the room. She responds to redirection and returns to sit on the table. She is then redirected to sit on the chair and does so. Patient is a poor historian with tangential thoughts currently. She is unable to answer questions in a linear and goal oriented manner despite being asked several times. She has flight of ideas. For instance, when asked about outpatient care several times, she says she sees someone named Yaritza then says "I just watch videos and I guess I used to [place] They're [place]". She appears to be able to answer close-ended questions in a concrete manner but has difficulty sustaining attention to answer any open-ended questions. She does not display neologisms but does display odd behavior such as moving around during the interview. She states that she has been sleeping 2 hours for the past 1 week. She reports low mood. Although patient in unable to answer about her energy levels, despite her lack of sleep, patient was agitated overnight requiring Zyprexa 5 mg PRN twice, Vistaril 25 mg PRN once and needed additional Seroquel 100 mg before sleeping. She reports fluctuating appetite. She denies worthlessness or grandiosity. She displays increase goal-directed activity and psychomotor agitation. Patient currently denies suicidal and homicidal ideation. She denies auditory and visual hallucinations and paranoia. Patient granted this provider verbal permission to speak with her mother over the phone. This provider spoke with her mother states that the patient has been experiencing increasingly rapid thoughts and odd statements that started on July 18. Her mother denies patient reporting any auditory or visual hallucinations. She is unclear on patient's current medications and if the patient was changed on any of her medications recently but claims that she believes this might be due to a medication change. Her mother states that patient experiences an episode one year ago and that it lasted for about 2 days. Mother is unclear on further history." Hospital course: Upon admission to the unit patient was initially noted to be severely agitated, restless, and presenting with a flight of ideas. Very tangential and was very impulsive. She required 1:1 supervision sitter and was administered IM medications in order to address her acute agitation and gross disorganization. The patient ended up sleeping after administration of Prolixin IM and was sedated for 12 hours. Upon waking, the patient's disposition was vastly improved. She continued to endorse issues regarding racing thoughts however was much more linear, logical, and cooperative. Patient got along well with other patients on the unit and followed unit protocol. She was started on a regimen of lithium and was transitioned from zyprexa to invega in order to be placed on invega sustenna due to the patient's history of nonadherence with treatment. Patient was compliant with the medications and denied any side effects throughout hospital course. Patient spoke of her stressors and engaged in therapy both group and individual. Patient was also seen by medical team for history and physical exam. Throughout the course of the hospitalization patient gradually improved with regards to mood stability, sleep and became future oriented with improved insight and judgment. On the day of discharge patient denied any suicidal or homicidal ideations intent or plan denied any auditory or visual hallucinations. Patient endorsed wanting to live for her health and family. The patient denied any access to guns or weapons. Patient denied any paranoia and did not endorse any delusions. Patient does have a significant history of substance abuse (marijuana) however was counseled on abstaining from all substances including alcohol and marijuana. Patient was also counseled on the medications and need for regular compliance and was encouraged to follow-up with their outpatient appointment for mental health and also for primary care. Prior to discharge a family meeting will be arranged by delinquency prevention social worker to answer any questions and ensure safety upon discharge. Mental status exam: General Appearance: Patient appears to be stated age is alert, pleasant, and destination imagination coordinator perative. Patient is in no acute distress, fair hygiene and grooming, green dyed hair, and wearing glasses Behavior: Patient is calmly seated without any agitated behavior. Speech: Patient's speech is fluent and nonpressured. Mood/Affect: Patient reports their mood is "much better", affect is congruent and euthymic to bright. Suicidality/Homicidality: Patient denies having any suicidal or homicidal ideation intent or plan. Perceptions: Patient denies any auditory or visual hallucinations. Though content/process: There is no evidence of any delusional thought content and thought process is linear and goal-directed. Patient is future oriented. Memory and concentration: AOX3, grossly intact for the purposes of this session. Can spell "WORLD" backwards correctly. Judgment and insight: Improved with guarded prognosis Impression: Bipolar I disorder, currently manic, mixed, with psychotic features Cannabis use disorder Nicotine dependence Plan: -Continue with discharge today as patient has improved and stabilized psychiatrically and is not currently an imminent threat to herself and/or others. Patient will remain at chronically elevated risk for harm to self and/or others due to her history of nonadherence with treatment and severity of mental illness. -Continue medications: lithium 450 mg twice daily for mood stabilization invega sustenna 234 mg IM adminsitered on 07/26/2022. Next loading dose 156 mg IM due on 08/02/2022. melatonin 10 mg at bedtime for insomnia -Patient was counseled on the need for medication compliance and appropriate follow-up at mental health and also primary care for medical issues. Patient verbalized understanding and agreed. -Social work to arrange for and conduct family meeting to ensure safety upon discharge and answer any questions/concerns. Social work also to arrange for patients follow up appointments with [facility] for psychiatric care along with follow up with primary care provider. -Patient counseled on abstaining from recreational drugs and marijuana and alcohol. Was informed/educated on the adverse effects on their physical and mental health. Patient verbally agreed and understood. -Patient was instructed to return to the hospital or seek immediate medical care if their psychiatric or medical symptoms do worsen or reoccur. -Psychoeducation and supportive therapy provided to patient. Risks and benefits of pharmacological treatment versus the risks and benefits of nontreatment weight and discussed. Informed consent discussion held. Common side effects of psychotropics discussed such as, but not limited to headache, GI disturbance, sexual dysfunction, movement disorders, sedation, and orthostatic hypotension. Life threatening and blackbox warnings of prescribed medications also discussed. Potential risks of operating a vehicle or heavy machinery discussed with patient at length. Advised on importance of compliance and a reliable and responsible manner. Patient advised to review FDA consumer labeling of all me dications prior to taking. Patient verbalized understanding of potential risks, and agrees with current treatment plan. Patient advised to medically contact physician/emergency personnel if any acute changes in condition occur. Vital Signs Temp 98 F 07/27/22 06:34 Pulse 93 07/27/22 06:34 Resp 14 07/27/22 06:34 BP 107/57 07/27/22 06:34 Pulse Ox 98 07/23/22 00:00 FiO2 Laboratory Results WBC 11.6 k/uL (3.8-10.6) H 07/20/22 19:40 RBC 3.72 m/uL (3.80-5.40) L 07/20/22 19:40 Hgb 12.9 gm/dL (11.4-16.0) 07/20/22 19:40 Hct 34.5 % (34.0-46.0) 07/20/22 19:40 MCV 92.7 fL (80.0-100.0) 07/20/22 19:40 MCH 34.6 pg (25.0-35.0) 07/20/22 19:40 MCHC 37.3 g/dL (31.0-37.0) H 07/20/22 19:40 RDW 14.7 % (11.5-15.5) 07/20/22 19:40 Plt Count 260 k/uL (150-450) 07/20/22 19:40 MPV 7.9 07/20/22 19:40 Neutrophils % 77 % 07/20/22 19:40 Lymphocytes % 15 % 07/20/22 19:40 Monocytes % 5 % 07/20/22 19:40 Eosinophils % 1 % 07/20/22 19:40 Basophils % 1 % 07/20/22 19:40 Neutrophils # 8.9 k/uL (1.3-7.7) H 07/20/22 19:40 Lymphocytes # 1.7 k/uL (1.0-4.8) 07/20/22 19:40 Monocytes # 0.6 k/uL (0-1.0) 07/20/22 19:40 Eosinophils # 0.1 k/uL (0-0.7) 07/20/22 19:40 Basophils # 0.1 k/uL (0-0.2) 07/20/22 19:40 Hyperchromasia Marked 07/20/22 19:40 Sodium 140 mmol/L (137-145) 07/20/22 19:40 Potassium 3.7 mmol/L (3.5-5.1) 07/20/22 19:40 Chloride 103 mmol/L (98-107) 07/20/22 19:40 Carbon Dioxide 26 mmol/L (22-30) 07/20/22 19:40 Anion Gap 11 mmol/L 07/20/22 19:40 BUN 9 mg/dL (7-17) 07/20/22 19:40 Creatinine 0.70 mg/dL (0.52-1.04) 07/20/22 19:40 Est GFR (CKD-EPI)AfAm >90 (>60 ml/min/1.73 sqM) 07/20/22 19:40 Est GFR (CKD-EPI)NonAf >90 (>60 ml/min/1.73 sqM) 07/20/22 19:40 Glucose 106 mg/dL (74-99) H 07/20/22 19:[address] Glu mg/dL 86 07/20/22 19:40 Hemoglobin A1c 4.6 % (0.0-6.0) 07/20/22 19:40 Calcium 9.9 mg/dL (8.4-10.2) 07/20/22 19:40 Total Bilirubin 1.4 mg/dL (0.2-1.3) H 07/20/22 19:40 AST 33 U/L (14-36) 07/20/22 19:40 ALT 41 U/L (4-34) H 07/20/22 19:40 Alkaline Phosphatase 70 U/L (38-126) 07/20/22 19:40 Total Protein 7.6 g/dL (6.3-8.2) 07/20/22 19:40 Albumin 4.7 g/dL (3.5-5.0) 07/20/22 19:40 Triglycerides 113.00 mg/dL (0.00-149.00) 07/20/22 19:40 Cholesterol 158.00 mg/dL (0.00-200.00) 07/20/22 19:40 LDL Cholesterol, Calc 87.2 mg/dL (0.0-131.0) 07/20/22 19:40 VLDL Cholesterol, Calc 22.60 mg/dL (5.00-40.00) 07/20/22 19:40 HDL Cholesterol 48.20 mg/dL (40.00-60.00) 07/20/22 19:40 Cholesterol/HDL Ratio 3.28 Ratio 07/20/22 19:40 TSH 3.930 mIU/L (0.465-4.680) 07/20/22 19:40 Urine Color Yellow 07/21/22 00:25 Urine Appearance Cloudy (Clear) H 07/21/22 00:25 Urine pH 6.0 (5.0-8.0) 07/21/22 00:25 Ur Specific [place] 1.026 (1.001-1.035) 07/21/22 00:25 Urine Protein Trace (Negative) H 07/21/22 00:25 Urine Glucose (UA) Negative (Negative) 07/21/22 00:25 Urine Ketones 1+ (Negative) H 07/21/22 00:25 Urine Blood Trace (Negative) H 07/21/22 00:25 Urine Nitrite Negative (Negative) 07/21/22 00:25 Urine Bilirubin Negative (Negative) 07/21/22 00:25 Urine Urobilinogen <2.0 mg/dL (<2.0) 03/18/23 00:25 Ur Leukocyte Esterase Small (Negative) H 07/21/22 00:25 Urine RBC 9 /hpf (0-5) H 07/21/22 00:25 Urine WBC 7 /hpf (0-5) H 07/21/22 00:25 Ur Squamous Epith Cells 19 /hpf (0-4) H 07/21/22 00:25 Urine Mucus Few /hpf (None) H 07/21/22 00:25 Urine HCG, Qual Not Detected (Not Detectd) 07/21/22 00:25 Urine Opiates Screen Not Detected (NotDetected) 07/20/22 09:17 Ur Oxycodone Screen Not Detected (NotDetected) 07/20/22 09:17 Urine Methadone Screen Not Detected (NotDetected) 07/20/22 09:17 Ur Propoxyphene Screen Not Detected (NotDetected) 07/20/22 09:17 Ur Barbiturates Screen Not Detected (NotDetected) 07/20/22 09:17 U Tricyclic Antidepress Not Detected (NotDetected) 07/20/22 09:17 Ur Phencyclidine Scrn Not Detected (NotDetected) 07/20/22 09:17 Ur Amphetamines Screen Not Detected (NotDetected) 07/20/22 09:17 U Methamphetamines Scrn Not Detected (NotDetected) 07/20/22 09:17 U Benzodiazepines Scrn Not Detected (NotDetected) 07/20/22 09:17 [place] 0.9 mmol/L 07/26/22 11:44 Urine Cocaine Screen Not Detected (NotDetected) 07/20/22 09:17 U Marijuana (THC) Screen Detected (NotDetected) H 07/20/22 09:17 Coronavirus (PCR) Not Detected (Not Detectd) 07/20/22 14:50 Allergies Allergy/AdvReac Type Severity Reaction Status Date / Time bupropion [From Wellbutrin] AdvReac CAUSES Verified 07/20/22 18:52 SEIZURES Patient Condition at Discharge: Stable Plan - Discharge Summary Discharge Rx Participant: No New Discharge Prescriptions: New Melatonin 10 mg PO HS 30 Days #60 tab Paliperidone IM [Invega Sustenna] 156 mg IM QMONTHLY #1 each [place] Carbonate 450 mg PO BID 15 Days #45 cap Continue Omeprazole 20 mg PO BID Metoclopramide HCl [Reglan] 5 mg PO Q6H PRN #30 tablet PRN Reason: Nausea Cholecalciferol [Vitamin D3 (125 Mcg = 5000 Iu)] 125 mcg PO DAILY Discontinued clonazePAM [KlonoPIN] 1 mg PO TID PRN PRN Reason: Anxiety Methylphenidate HCl [Ritalin] 10 mg PO BID FLUoxetine HCL [PROzac] 40 mg PO DAILY OLANZapine [ZyPREXA] 2.5 mg PO DAILY Albuterol Inhaler [Ventolin Hfa Inhaler] 2 puff INHALATION RT-Q6H PRN PRN Reason: Shortness Of Breath Prazosin [Minipress] 5 mg PO HS PRN PRN Reason: NIGHTMARES OLANZapine [ZyPREXA] 5 mg PO HS Discharge Medication List Metoclopramide HCl [Reglan] 5 mg PO Q6H PRN #30 tablet 02/17/21 [Rx] Cholecalciferol [Vitamin D3 (125 Mcg = 5000 Iu)] 125 mcg PO DAILY 07/20/22 [History] Omeprazole 20 mg PO BID 07/20/22 [History] [place] Carbonate 450 mg PO BID 15 Days #45 cap 07/27/22 [Rx] Melatonin 10 mg PO HS 30 Days #60 tab 07/27/22 [Rx] Paliperidone IM [Invega Sustenna] 156 mg IM QMONTHLY #1 each 07/27/22 [Rx] Follow up Appointment(s)/Referral(s): [facility] [Outside] - 08/06/22 9:00 am (08/06/2022 9:00AM - 10:00AM with JAY PRYOR 08/07/2022 9:00AM - 10:15AM with KAILA KRISHNAMURTHY 08/14/2022 1:30PM - 3:15PM with KAILA KRISHNAMURTHY) Alan Jacobs MD [Primary Care Provider] - 1-2 days Activity/Diet/Wound Care/Special Instructions: Avoid the use of street drugs and alcohol. Take all medications as prescribed. When you are in need of refills on your medications, please contact your medical provider and/or outpatient psychiatrist to have this done. Please go to scheduled outpatient appointments for aftercare treatment. If symptoms return or become worse, call the crisis line at and/or go to the nearest emergency room for evaluation. Discharge Disposition: HOME SELF-CARE
== END 2022-07-27 13:11 | disposition home or self-care (01) | DRG 885 ==
LOC: EC 08:37 → 3MHU 16:07
PROVIDERS: ADMIT Psychiatry & Neurology Psychiatry; ATTEND Psychiatry & Neurology Psychiatry
DX: F31.2 Bipolar disorder, current episode manic severe with psychotic features (principal); Q25.6 Stenosis of pulmonary artery; G25.9 Extrapyramidal and movement disorder, unspecified; R45.851 Suicidal ideations; G47.00 Insomnia, unspecified; K21.9 Gastro-esophageal reflux disease without esophagitis; R56.9 Unspecified convulsions; Z20.822 Contact with and (suspected) exposure to COVID-19; Z28.21 Immunization not carried out because of patient refusal; F12.10 Cannabis abuse, uncomplicated; Z71.51 Drug abuse counseling and surveillance of drug abuser; F90.9 Attention-deficit hyperactivity disorder, unspecified type; Z56.0 Unemployment, unspecified; Z81.8 Family history of other mental and behavioral disorders; F17.290 Nicotine dependence, other tobacco product, uncomplicated; Z88.8 Allergy status to other drugs, medicaments and biological substances; Z79.899 Other long term (current) drug therapy; Z91.52 Personal history of nonsuicidal self-harm
CPT/HCPCS: 74022; 80053; 80061; 80178; 80306; 81001; 81025; 82075; 83036; 84443; 85025; 87635; 93005; 99285

== ENCOUNTER 2023-03-26 19:13 | Emergency (ER) | payer BC ==
[2023-03-26 19:35] VITALS: RESP 16
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
[2023-03-26 20:46] LABS: Anisocytosis Slight; Basophils % (A) 0 %; Eosinophils # (A) 0.1 k/uL (0-0.7); Eosinophils % (A) 1 %; HCT 35.9 % (34.0-46.0); Hyperchromasia Slight; Lymphocytes # (A) 1.7 k/uL (1.0-4.8); Lymphocytes % (A) 14 %; MCH 32.1 pg (25.0-35.0); MCHC 36.3 g/dL (31.0-37.0); MCV 88.4 fL (80.0-100.0); Mean Platelet Volume 7.6; Monocytes # (A) 0.5 k/uL (0-1.0); Monocytes % (A) 4 %; Neutrophils % (A) 81 %; Platelet Count 311 k/uL (150-450); RBC 4.06 m/uL (3.80-5.40); WBC 12.3 k/uL (3.8-10.6)
[2023-03-26 21:17] LABS: ALT 26 U/L (4-34); AST 35 U/L (14-36); African American GFR (CKD) >90 (>60 ml/min/1.73 sqM); Albumin 4.4 g/dL (3.5-5.0); Alkaline Phosphatase 57 U/L (38-126); Amylase 41 U/L (30-110); Anion Gap 13 mmol/L; Blood Urea Nitrogen 10 mg/dL (7-17); Calcium 9.7 mg/dL (8.4-10.2); Carbon Dioxide 21 mmol/L (22-30); Chloride 103 mmol/L (98-107); Glucose 87 mg/dL (74-99); Lipase 31 U/L (23-300); Non-African American GFR(CKD) >90 (>60 ml/min/1.73 sqM); Potassium 4.5 mmol/L (3.5-5.1); Sodium 137 mmol/L (137-145); Total Bilirubin 1.6 mg/dL (0.2-1.3); Total Protein 7.5 g/dL (6.3-8.2)
--- NOTE | 2023-03-26 21:23 | US ---
EXAMINATION TYPE: US gallbladder DATE OF EXAM: 03/26/2023 COMPARISON: CT: 02/16/21 CLINICAL INDICATION: Female, 22 years old with history of Epigastric pain; Epigastric pain on and off x 1 week TECHNIQUE: Multiple sonographic images of the right upper quadrant are obtained. FINDINGS: EXAM MEASUREMENTS: Liver Length: 15.7 cm Gallbladder Wall: 0.25 cm CBD: 0.35 cm Right Kidney: 12.1 x 4.3 x 4.8 cm BUSINESS PROCESS ENGINEER NOTES: Pancreas: Parts seen appear wnl Liver: Heterogeneous and increased attenuation Gallbladder: wnl Evidence for sonographic Nieves's sign: No CBD: wnl Right Kidney: wnl IMPRESSION: Hepatic steatosis.
[2023-03-26] MEDS ORDERED: ONDANSETRON 4 MG ODT STARTER PACK 2 TAB BTL PO STA (22:08)
--- NOTE | 2023-03-26 22:08 | CT ---
EXAMINATION TYPE: CT abdomen pelvis w con CT DLP: 1078.9 mGycm, Automated exposure control for dose reduction was used. DATE OF EXAM: 03/26/2023 9:51 PM COMPARISON: CT abdomen pelvis most recent from CLINICAL INDICATION:Female, 22 years old with history of Epigastric pain, leukocytosis; UPPER EPIGAST MAN PAIN X2 WEEKS, BLOOD IN STOOL X2 MONTHS TECHNIQUE: Axial CT of the ;CT abdomen pelvis w con;Sagittal and coronal reformats were created on a separate workstation. Contrast used:100Ml mL of Isovue 300 with IV Contrast, (none if empty) Oral contrast used: without Oral Contrast (none if empty) FINDINGS: LOWER CHEST: Unremarkable ABDOMEN LIVER: Focal fatty infiltration adjacent to the falciform ligament in segment IVb GALLBLADDER AND BILE DUCTS: Unremarkable. PANCREAS: Unremarkable. SPLEEN: Unremarkable. ADRENAL GLANDS: Unremarkable. KIDNEYS AND URETERS: No evidence of hydronephrosis or renal calculus. The ureters are unremarkable. D uplicated renal collecting systems bilaterally. PELVIS BLADDER: Unremarkable REPRODUCTIVE: Unremarkable. ABDOMEN & PELVIS STOMACH AND BOWEL: No evidence of bowel obstruction. Appendix is normal. PERITONEUM/RETROPERITONEUM: No evidence of pneumoperitoneum or free fluid. VASCULATURE: No evidence of aortic aneurysm. MUSCULOSKELETAL: No acute osseous abnormalities LYMPH NODES: No gross evidence for lymphadenopathy. SOFT TISSUE/ABDOMINAL WALL: Fat-containing umbilical hernia. IMPRESSION: No abdominal acute process to explain the patient's epigastric pain.
[2023-03-26 22:32] LABS: HCG,Qualitative Serum Not Detected
[2023-03-26 22:36] VITALS: BP 122/71; PULSE 86; TEMP 97.9
== END 2023-03-26 22:18 | disposition home or self-care (01) ==
LOC: EC 19:13
DX: K92.1 Melena (principal); K21.9 Gastro-esophageal reflux disease without esophagitis; F17.290 Nicotine dependence, other tobacco product, uncomplicated; F12.90 Cannabis use, unspecified, uncomplicated; Z79.899 Other long term (current) drug therapy; Z88.8 Allergy status to other drugs, medicaments and biological substances
CPT/HCPCS: 36415; 80053; 82150; 83605; 83690; 85025; 84703; 76705; 74177; 99284; Q9967

== ENCOUNTER 2023-03-27 12:34 | Emergency (ER) | payer BC ==
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
[2023-03-27 13:51] LABS: Anisocytosis Slight; Basophils % (A) 0 %; Eosinophils # (A) 0.1 k/uL (0-0.7); Eosinophils % (A) 0 %; HCT 38.1 % (34.0-46.0); HGB 13.8 gm/dL (11.4-16.0); Hyperchromasia Slight; Lymphocytes # (A) 1.1 k/uL (1.0-4.8); Lymphocytes % (A) 10 %; MCH 31.7 pg (25.0-35.0); MCHC 36.1 g/dL (31.0-37.0); MCV 87.8 fL (80.0-100.0); Mean Platelet Volume 7.6; Monocytes # (A) 0.4 k/uL (0-1.0); Monocytes % (A) 4 %; Neutrophils # (A) 9.7 k/uL (1.3-7.7); Neutrophils % (A) 85 %; Platelet Count 350 k/uL (150-450); RBC 4.34 m/uL (3.80-5.40); WBC 11.4 k/uL (3.8-10.6)
[2023-03-27 14:00] LABS: ALT 26 U/L (4-34); AST 25 U/L (14-36); African American GFR (CKD) >90 (>60 ml/min/1.73 sqM); Albumin 4.8 g/dL (3.5-5.0); Alkaline Phosphatase 73 U/L (38-126); Amylase 45 U/L (30-110); Anion Gap 15 mmol/L; Blood Urea Nitrogen 8 mg/dL (7-17); Calcium 9.9 mg/dL (8.4-10.2); Carbon Dioxide 22 mmol/L (22-30); Chloride 100 mmol/L (98-107); Glucose 114 mg/dL (74-99); Lipase 48 U/L (23-300); Non-African American GFR(CKD) >90 (>60 ml/min/1.73 sqM); Potassium 4.2 mmol/L (3.5-5.1); Sodium 137 mmol/L (137-145); Total Bilirubin 1.9 mg/dL (0.2-1.3); Total Protein 7.8 g/dL (6.3-8.2)
[2023-03-27 15:14] LABS: Appearance,Urine Cloudy (Clear); Bacteria,Urine Rare /hpf; Bilirubin,Urine Negative (Negative); Blood,Urine Trace (Negative); Color,Urine Yellow; Glucose,Urine (UA) Negative (Negative); Ketones,Urine 3+ (Negative); Leukocyte Esterase,Urine Moderate (Negative); Mucus,Urine Many /hpf; Nitrite,Urine Negative (Negative); Protein,Urine 1+ (Negative); RBC,Urine 2 /hpf (0-5); Specific Gravity,Urine 1.037 (1.001-1.035); Squamous Epithelial Cell,Urine 6 /hpf (0-4); WBC,Urine 6 /hpf (0-5)
[2023-03-27 16:09] VITALS: PULSE 100
[2023-03-27] MEDS ORDERED: SODIUM CHLORIDE 0.9% 1,000 ML IV STA (16:09)
[2023-03-27] MEDS ORDERED: SODIUM CHLORIDE 0.9% 500 ML 500 ML IV STA (16:09)
[2023-03-27] MEDS ORDERED: PANTOPRAZOLE 40 MG/10 ML VIAL IVP STA (16:09)
[2023-03-27] MEDS ORDERED: PROCHLORPERAZINE INJ 10 MG/2 ML VIAL IVP STA (16:09)
[2023-03-27] MEDS ORDERED: MAG HYDROX/AL HYDROX/SIMETH 30 ML, HYOSCYAMINE ELIXIR 10 ML PO STA ×2 (16:09)
[2023-03-27] MEDS ORDERED: HYDROmorphone 1 MG/ML 1 ML SYRINGE IVP STA (16:47)
[2023-03-27] MEDS ORDERED: diphenhydrAMINE 50 MG/ML 1 ML VIAL IVP STA (16:47)
--- NOTE | 2023-03-27 17:02 | CT ---
EXAMINATION TYPE: CT abdomen pelvis wo con DATE OF EXAM: 03/27/2023 COMPARISON: 03/26/2023 HISTORY: 22-year-old female Umbilical abdominal pain x8days. Nausea/vomiting. CT DLP: 714.6 mGycm. Automated exposure control for dose reduction was used. TECHNIQUE: Contiguous axial scanning of the abdomen and pelvis without IV contrast. Coronal and sagit tigre reconstructions performed. FINDINGS: LUNG BASES: No significant abnormality is appreciated. LIVER/GB: Markedly diminished attenuation. Either a cyst or area of more severe focal fat along the a nterior falciform ligament measuring 1.4 cm. Gallbladder borderline distended at 3.8 cm wide but with out any surrounding inflammation. PANCREAS: No significant abnormality is seen. SPLEEN: No significant abnormality is seen. ADRENALS: No significant abnormality is seen. KIDNEYS: Some residual faint excreting contrast from the kidneys. No hydronephrosis. BOWEL: Normal appendix. While snowboarding. No dilated small bowel, free fluid, or free air. No peric olonic inflammatory change. LYMPH NODES: No greater than 1cm abdominal or pelvic lymph nodes are appreciated. PELVIS: Excreting contrast collecting within the partially distended bladder. Numerous pelvic phlebol ith. Uterus anteverted. Both ovaries are visualized. No abnormal fluid collection in the pelvis. OSSEOUS STRUCTURES: No significant abnormality is seen. OTHER: No significant additional abnormality is seen. IMPRESSION: 1. Moderate to severe hepatic steatosis. Appropriate clinical management is advised. 2. Residual faintly excreting contrast from the kidneys secondary to the IV contrast administered ye sterday. There is some IV contrast material collected in the bladder as well. 3. No acute inflammatory process identified in the abdomen or pelvis to explain the patient's sympto ms.
[2023-03-27 17:52] VITALS: BP 121/90; RESP 17; TEMP 98.2
== END 2023-03-27 17:44 | disposition home or self-care (01) ==
LOC: EC 12:34
DX: R10.9 Unspecified abdominal pain (principal); R11.2 Nausea with vomiting, unspecified; K21.9 Gastro-esophageal reflux disease without esophagitis; F41.9 Anxiety disorder, unspecified; F31.9 Bipolar disorder, unspecified; F17.290 Nicotine dependence, other tobacco product, uncomplicated; F12.90 Cannabis use, unspecified, uncomplicated; Z88.8 Allergy status to other drugs, medicaments and biological substances; Z79.899 Other long term (current) drug therapy
CPT/HCPCS: 36415; 80053; 82150; 83690; 85025; 81001; 81025; 74176; 99284; 96374; 96375 ×2; 96361; J1200; J0780; C9113

== ENCOUNTER → 2023-04-16 | Outpatient (CLI) | payer BC ==
--- NOTE | 2023-04-16 21:36 | NM ---
EXAMINATION TYPE: NM hepatobiliary w CCK DATE OF EXAM: 04/16/2023 4:29 PM COMPARISON: CT abdomen pelvis most recent from 03/25/2023. CLINICAL INDICATION:Female, 22 years old with history of R10.9 UNSPECIFIED ABDOMINAL PAIN; TECHNIQUE: The patient was given 5.21 mCi of Technetium 99m-Mebrofenin as a radiotracer and multiple scintigraphic images were obtained of the abdomen. Gallbladder function was also assessed after the administration of ensure drink and additional scintigraphic images were obtained of the abdomen. A re gion of interest was drawn over the gallbladder and a timing activity curve was generated. The gallbl adder ejection fraction was calculated. FINDINGS: Normal uptake of radiotracer was identified within the liver with excretion into the hepatic and comm on biliary ducts . There was normal progressive washout of the liver over the course of the study. Ra diotracer uptake within the gallbladder at 10 minutes as well as small bowel activity was identified at 38 minutes. Maximum calculated gallbladder ejection fraction is: 92% at 29 minutes (Normal gallbladder ejection fraction is > 35%) IMPRESSION: 1. Normal hepatobiliary scan. 2. Normal ejection fraction.
== END | disposition home or self-care (01) ==
LOC: RADNMMAIN 13:04
PROVIDERS: ATTEND Family Medicine
DX: R10.9 Unspecified abdominal pain (principal)
CPT/HCPCS: 78227; A9537; J2805

== ENCOUNTER → 2023-05-10 | Outpatient (CLI) | payer BC | END | disposition home or self-care (01) | LOC: LABWHC1 10:24 | PROVIDERS: ATTEND Nurse Practitioner Family | DX: F12.288 Cannabis dependence with other cannabis-induced disorder (principal) | CPT/HCPCS: 36415; 83516 ==